=== PATIENT | male | born 1950 | race Caucasian/White ===

== ENCOUNTER 2018-05-29 13:28 | Emergency (ER) | payer MEDICARE, OTHER, SELFPAY ==
[2018-05-29 13:44] VITALS: BP 146/74; PULSE 64; RESP 16; TEMP 36.2; O2SAT 98
--- NOTE | 2018-05-29 14:03 | ED.WOUNDLAC ---
HPI - Wound/Laceration <ERICA Estrada - Last Filed: 05/29/18 23:28> General Chief Complaint: Wound/Laceration Stated Complaint: SORE ON LEFT LEG Time Seen by Provider: 05/29/18 14:03 Source: patient History of Present Illness HPI narrative: 67-year-old male with history type 2 diabetes here for complaint of redness to his left lower leg. He states that he scraped himself on some wood a couple weeks ago to his lower extremity and reports over the past several days that he has had worsening redness to that area. He states that he has been bandaging the area with bacitracin and a dressing since the initial abrasion. No fevers no chills. He denies any other concerns or complaints at this time. Onset (ago): day(s) Related Data Home Medications Medication Instructions Recorded Confirmed ASCORBIC ACID (VITAMIN C) #0 07/14/13 CHOLECALCIFEROL (VITAMIN D) 2,000 units PO QDAY #0 07/14/13 CYANOCOBALAMIN (VITAMIN B-12) 1,000 mcg PO QDAY #0 07/14/13 MULTIVITAMIN #0 07/14/13 amitriptyline #0 07/14/13 aspirin 81 mg PO QDAY #0 07/14/13 atenolol 50 mg PO QDAY #0 07/14/13 clopidogrel [Plavix] 75 mg PO DAILY #0 07/14/13 05/29/18 magnesium #0 07/14/13 metformin [Glucophage] #0 07/14/13 simvastatin [Zocor] #0 07/14/13 testosterone [AndroGel] #0 07/14/13 atorvastatin 40 mg PO DAILY 05/29/18 05/29/18 lisinopril 20 mg PO DAILY 05/29/18 05/29/18 loratadine 10 mg PO DAILY 05/29/18 05/29/18 metoprolol succinate 50 mg PO DAILY 05/29/18 05/29/18 sitagliptin-metformin [Janumet] 05/29/18 testosterone [Fortesta] 05/29/18 Previous Rx's Medication Instructions Recorded clindamycin HCl 300 mg PO QID #28 cap 05/29/18 Allergies Allergy/AdvReac Type Severity Reaction Status Date / Time No Known Drug Allergies Allergy Verified 05/29/18 13:47 Review of Systems <ERICA Estrada - Last Filed: 05/29/18 23:28> Constitutional Denies chills, Denies fever(s), Denies lethargy and Denies weakness Eyes Denies change in vision, Denies eye discharge, Denies irritation and Denies loss of vision ENT Ears, Nose, Mouth, and Throat: Denies change in voice, Denies neck pain and Denies sore throat Cardiovascular Denies chest pain, Denies irregular heart rhythm, Denies lightheadedness, Denies palpitations, Denies dyspnea, Denies dyspnea on exertion and Denies orthopnea Respiratory Denies cough, Denies dyspnea, Denies dyspnea on exertion and Denies wheezing Gastrointestinal Gastrointestinal: Denies abdominal pain, Denies change in bowel habits, Denies diarrhea, Denies nausea and Denies vomiting Genitourinary Denies hematuria, Denies flank pain, Denies urinary incontinence and Denies urinary urgency Musculoskeletal Denies neck pain Comments: Redness to left lower extremity Integumentary/Breasts Denies pruritus, Denies erythema, Denies rash and Denies wounds Neurologic Denies confusion, Denies loss of vision and Denies weakness Psychiatric Denies anxiety, Denies confusion, Denies depression, Denies homicidal ideation and Denies suicidal ideation Endocrine Denies palpitations Allergic/Immunologic Denies wheezing Exam <ERICA Estrada - Last Filed: 05/29/18 23:28> Initial Vital Signs Initial Vital Signs: Vital Signs Temperature 97.1 F L 05/29/18 13:44 Pulse Rate 64 05/29/18 13:44 Respiratory Rate 16 05/29/18 13:44 Blood Pressure 146/74 H 05/29/18 13:44 Pulse Oximetry 98 05/29/18 13:44 Const General: cooperative and well developed Nutritional Appearance: well nourished Orientation: alert, awake, oriented x3 and not confused HENMT Mouth: oral mucosae normal and moist mucous membranes Eyes Conjunctivae: conjunctivae normal Sclera: sclerae normal Pupils: PERRL EOM: EOM intact bilaterally Resp Effort & Inspection: normal respiratory effort, able to speak in complete sentences, no respiratory distress and no use of accessory muscles Auscultation: clear to auscultation bilaterally, no rales, no rhonchi and no wheezes Cardio Rate: regular rate Rhythm: regular rhythm Heart Sounds: no click, no gallops, no murmurs and no rubs Pulses: normal peripheral pulses Extrem Other: Left lower extremity with erythema to area of approximately 10 cm to the morrison. No induration no fluctuance. Distal CMS is intact <Valdo Diaz DO - Last Filed: 06/05/18 07:12> Initial Vital Signs Initial Vital Signs: Vital Signs Temperature 97.1 F L 05/29/18 13:44 Pulse Rate 64 05/29/18 13:44 Respiratory Rate 16 05/29/18 13:44 Blood Pressure 146/74 H 05/29/18 13:44 Pulse Oximetry 98 05/29/18 13:44 Course <ERICA Estrada - Last Filed: 05/29/18 23:28> Vital Signs - 8 hr 05/29/18 13:44 Temperature 97.1 F L Pulse Rate 64 Respiratory Rate 16 Blood Pressure 146/74 H Pulse Oximetry 98 <Valdo Diza DO - Last Filed: 06/05/18 07:12> Vital Signs - 8 hr 05/29/18 13:44 Temperature 97.1 F L Pulse Rate 64 Respiratory Rate 16 Blood Pressure 146/74 H Pulse Oximetry 98 MDM - Wound/Laceration <ERICA Estrada - Last Filed: 05/29/18 23:28> MDM Narrative Medical decision making narrative: Signs and symptoms presents with cellulitis to the left lower extremity. He is placed on clindamycin. [id number] Tylenol or Motrin as needed for any discomfort. Follow up with primary care provider the next few days for re-evaluation. For any worsening symptoms return to the emergency room. Discharge Plan Departure Patient Disposition: Home, Self-Care Clinical Impression: Cellulitis of left leg Discharge Date/Time: 05/29/18 14:36 Interventions: ED Discharge Assessment Last Done: 05/29/18 14:35 Instructions: DI for Cellulitis -- Adult Activity Restrictions/Additional Instructions: Signs and symptoms presents as starting infection called cellulitis to left lower leg. UR placed on antibiotic called clindamycin use as directed. Use afti-khr-eakfcil Tylenol as needed for any discomfort. Follow up with her primary care provider in the next few days for re-evaluation. For any worsening symptoms return to the emergency room. Prescriptions: New clindamycin HCl 300 mg capsule 300 mg PO QID Qty: 28 RF: 0 No Action amitriptyline 25 MG tablet Qty: 0 RF: 0 aspirin 81 MG tablet,delayed release (DR/EC) 81 mg PO QDAY Qty: 0 RF: 0 testosterone [AndroGel] 1 % gel in packet Qty: 0 RF: 0 atenolol 50 MG tablet 50 mg PO QDAY Qty: 0 RF: 0 CHOLECALCIFEROL (VITAMIN D) 2,000 units PO QDAY Qty: 0 RF: 0 magnesium 200 MG tablet Qty: 0 RF: 0 metformin [Glucophage] 500 MG tablet Qty: 0 RF: 0 MULTIVITAMIN Qty: 0 RF: 0 clopidogrel [Plavix] 75 MG tablet 75 mg PO DAILY Qty: 0 RF: 0 simvastatin [Zocor] 20 MG tablet Qty: 0 RF: 0 CYANOCOBALAMIN (VITAMIN B-12) 1,000 mcg PO QDAY Qty: 0 RF: 0 ASCORBIC ACID (VITAMIN C) Qty: 0 RF: 0 atorvastatin 40 mg tablet 40 mg PO DAILY RF: 0 metoprolol succinate 50 mg tablet extended release 24 hr 50 mg PO DAILY RF: 0 lisinopril 20 mg tablet 20 mg PO DAILY RF: 0 loratadine 10 mg tablet 10 mg PO DAILY RF: 0 sitagliptin-metformin [Janumet] 50-1,000 mg tablet RF: 0 testosterone [Fortesta] 10 mg/0.5 gram /actuation gel in metered-dose pump RF: 0 Referrals: Valente Ramos MD [Non-Staff] - <Valdo Diaz DO - Last Filed: 06/05/18 07:12> Cosign ED Attending Cosignature Attestation: I was available for consultation during this patient's emergency department encounter
== END 2018-05-29 14:36 | disposition home or self-care (01) ==
PROVIDERS: Emergency Provider Nurse Practitioner Family
DX: L03.116 Cellulitis of left lower limb (principal); W26.8XXA Contact with other sharp object(s), not elsewhere classified, initial encounter
CPT/HCPCS: 99282; 99283

== ENCOUNTER 2018-06-12 09:07 | Emergency (ER) | payer MEDICARE, OTHER, SELFPAY ==
--- NOTE | 2018-06-12 09:11 | ED.SKABFB ---
HPI - Skin/Abscess/Foreign Bdy General Chief complaint: Skin/Abscess/Foreign Body Stated complaint: LEFT LEG OPEN SORE Time Seen by Provider: 06/12/18 09:09 Source: patient Mode of arrival: ambulatory Limitations: no limitations History of Present Illness HPI narrative: 67-year-old gut-dgbkuwa-fmqjpddvl diabetic male here for evaluation of skin wound to his left lower extremity. Patient was seen here in the emergency department approximately 2 weeks ago for this. Was started on clindamycin for 7 days. He states that he took this medication. He states that it did not make his wounds better or worse. He states that his wounds today look very much the same as they did 2 weeks ago. He states that he called his primary care doctor today for a follow-up and was told to come to the emergency department to get a referral to see wound care. Related Data Home Medications Medication Instructions Recorded Confirmed ASCORBIC ACID (VITAMIN C) #0 07/14/13 CHOLECALCIFEROL (VITAMIN D) 2,000 units PO QDAY #0 07/14/13 CYANOCOBALAMIN (VITAMIN B-12) 1,000 mcg PO QDAY #0 07/14/13 MULTIVITAMIN #0 07/14/13 amitriptyline #0 07/14/13 aspirin 81 mg PO QDAY #0 07/14/13 atenolol 50 mg PO QDAY #0 07/14/13 clopidogrel [Plavix] 75 mg PO DAILY #0 07/14/13 05/29/18 magnesium #0 07/14/13 metformin [Glucophage] #0 07/14/13 simvastatin [Zocor] #0 07/14/13 testosterone [AndroGel] #0 07/14/13 atorvastatin 40 mg PO DAILY 05/29/18 05/29/18 lisinopril 20 mg PO DAILY 05/29/18 05/29/18 loratadine 10 mg PO DAILY 05/29/18 05/29/18 metoprolol succinate 50 mg PO DAILY 05/29/18 05/29/18 sitagliptin-metformin [Janumet] 05/29/18 testosterone [Fortesta] 05/29/18 Previous Rx's Medication Instructions Recorded clindamycin HCl 300 mg PO QID #28 cap 05/29/18 Allergies Allergy/AdvReac Type Severity Reaction Status Date / Time No Known Drug Allergies Allergy Verified 05/29/18 13:47 Review of Systems Constitutional Denies fever(s) Musculoskeletal Comments: No left lower extremity pain Integumentary/Breasts Comments: skin wounds to his left anterior leg Neurologic Comments: no changes in sensation to lower extremities Hematologic/Lymphatic Denies easy bleeding and Denies easy bruising COUNT INCLUDES THE [facility] Medical History Coronary artery disease (Acute) Coronary stent patent (Acute) Hypertension (Acute) Type 2 diabetes mellitus (Acute) Social History Smoking Status: Former smoker Exam Const General: cooperative, healthy appearing, comfortable, well developed, well groomed and No acute distress Orientation: alert, awake and oriented x3 HENMT Head: normal to inspection and normocephalic Resp Effort & Inspection: normal respiratory effort Cardio Pulses: dorsalis pedis present on the left Skin Other: patient with a 10 cm area of superficial ulcerations to his left anterior morrison. Does have crusting. No vesicles. No blisters. No surrounding erythema. Neuro Other: Sensation intact to light touch left lower extremity Extrem Other: left lower extremity unremarkable except for the skin changes to his left anterior morrison MDM - Skin/Abscess/Foreign Bdy MDM Narrative Medical decision making narrative: patient is nontoxic appearing. Had no improvement of his symptoms after 7 day course of clindamycin. Patient is not septic. He is neurovascularly intact. I did contact the wound Care Clinic and was able to make a referral out of the emergency department. They will call the patient for a follow-up appointment tomorrow. Patient was also given the phone number for the wound care clinic. Patient does not need admission to the hospital today. Given the look of his wound I do not think that another course of antibiotics is warranted currently. He was given care instructions to keep it covered so that does not rub against his pants. I feel that given his history of diabetes and the chronic nature of this wound and the fact that it did not get better with a course of antibiotics that a referral to see wound care is warranted. I discussed all this with the patient. He expressed understanding and agreement with plan. Discharge Plan Departure Patient Disposition: Home, Self-Care Clinical Impression: Chronic ulcer of left leg Activity Restrictions/Additional Instructions: you should be receiving a call from the wound care clinic here at [facility] for a follow-up tomorrow afternoon. If you do not hear from them you can call [phone] for a follow-up. Return to the emergency department for any new or worsening symptoms. continue all of your medications as directed. Prescriptions: No Action amitriptyline 25 MG tablet Qty: 0 RF: 0 aspirin 81 MG tablet,delayed release (DR/EC) 81 mg PO QDAY Qty: 0 RF: 0 testosterone [AndroGel] 1 % gel in packet Qty: 0 RF: 0 atenolol 50 MG tablet 50 mg PO QDAY Qty: 0 RF: 0 CHOLECALCIFEROL (VITAMIN D) 2,000 units PO QDAY Qty: 0 RF: 0 magnesium 200 MG tablet Qty: 0 RF: 0 metformin [Glucophage] 500 MG tablet Qty: 0 RF: 0 MULTIVITAMIN Qty: 0 RF: 0 clopidogrel [Plavix] 75 MG tablet 75 mg PO DAILY Qty: 0 RF: 0 simvastatin [Zocor] 20 MG tablet Qty: 0 RF: 0 CYANOCOBALAMIN (VITAMIN B-12) 1,000 mcg PO QDAY Qty: 0 RF: 0 ASCORBIC ACID (VITAMIN C) Qty: 0 RF: 0 atorvastatin 40 mg tablet 40 mg PO DAILY RF: 0 metoprolol succinate 50 mg tablet extended release 24 hr 50 mg PO DAILY RF: 0 lisinopril 20 mg tablet 20 mg PO DAILY RF: 0 loratadine 10 mg tablet 10 mg PO DAILY RF: 0 sitagliptin-metformin [Janumet] 50-1,000 mg tablet RF: 0 testosterone [Fortesta] 10 mg/0.5 gram /actuation gel in metered-dose pump RF: 0 clindamycin HCl 300 mg capsule 300 mg PO QID Qty: 28 RF: 0 Referrals: Frank Stanley MD [Physician] - ( Ecq-ihffrxn-xomcfweme diabetic with chronic left leg anterior tibial skin breakdown) Valente Ramos MD [Non-Staff] -
[2018-06-12 09:17] VITALS: BP 163/76; PULSE 90; RESP 20; TEMP 36.6; O2SAT 99; BMI 31.1
== END 2018-06-12 09:36 | disposition home or self-care (01) ==
PROVIDERS: Emergency Provider Emergency Medicine
DX: L97.929 Non-pressure chronic ulcer of unspecified part of left lower leg with unspecified severity (principal)
CPT/HCPCS: 99282

== ENCOUNTER → 2018-06-13 13:16 | Outpatient (CLI) | payer MEDICARE, OTHER, SELFPAY | PROVIDERS: Referring Provider Emergency Medicine; Visit Provider Internal Medicine | DX: I87.312 Chronic venous hypertension (idiopathic) with ulcer of left lower extremity (principal); L97.821 Non-pressure chronic ulcer of other part of left lower leg limited to breakdown of skin; L03.116 Cellulitis of left lower limb; E11.628 Type 2 diabetes mellitus with other skin complications | CPT/HCPCS: 87070; 87075; 87077; 87147; 87205; 97597; 97598; 99213 ==

== ENCOUNTER → 2018-06-20 10:46 | Outpatient (CLI) | payer MEDICARE, OTHER, SELFPAY | PROVIDERS: Visit Provider Internal Medicine | DX: S81.801A Unspecified open wound, right lower leg, initial encounter (principal); S81.802A Unspecified open wound, left lower leg, initial encounter; E11.628 Type 2 diabetes mellitus with other skin complications; R21 Rash and other nonspecific skin eruption | CPT/HCPCS: 97597 ==

== ENCOUNTER → 2018-06-27 10:22 | Outpatient (CLI) | payer MEDICARE, OTHER, SELFPAY | PROVIDERS: Visit Provider Internal Medicine | DX: S81.801A Unspecified open wound, right lower leg, initial encounter (principal); R21 Rash and other nonspecific skin eruption | CPT/HCPCS: 11042 ==

== ENCOUNTER → 2018-07-04 10:15 | Outpatient (CLI) | payer MEDICARE, OTHER, SELFPAY ==
--- NOTE | 2018-07-04 | OV.WND_ITS ---
Progress Note Details Patient Name: Sriram Aleman Patient Number: [id number] PatientPatientDate: 07/04/2018 Clinician: Stefani Glass Clinician Cosigner: Gita Campo Physician / Control System Computer Scientist: Frank Stanley SUBJECTIVE Chief Complaint This information was obtained from the patient Non-healing wound to left lower leg Allergies NKDA HPI This information was obtained from the patient 07/04/18. Seen by Dr. Stanley. The patient does not report significant drainage associated with the left lower leg venous ulcer nor right lower leg trauma wound since his last visit however he continues to report significant pruritus associated with the left lower leg ulcer as well as a localized rash that is also present on the arms. He feels applying topical hydrocortisone is only partially effective. 06/27/18. Seen by Dr. Stanley. The patient does not report significant drainage associated with the left lower leg venous ulcer nor right lower leg trauma wound since his last visit and he's applying topical triamcinolone ointment to the left lower leg periulcer rash as recommended. 06/20/18. Seen by Dr. Stanley. The patient reports significant pruritus associated with the left lower leg trauma wound but only minimal drainage and he completed his course of doxycycline yesterday that was treating an associated wound infection. He also reports a new trauma wound over the right lateral lower leg that occurred last Tuesday when he tripped over his cat. 06/13/18. Seen by Dr. Stanley. The patient's new to our clinic and presents with a slowly healing left lower leg trauma wound that occurred about one month ago when he hit the leg off of a piece of wood. He's completed a course of clindamycin and feels the wound has improved but continues to report redness and drainage from the area. He has well controlled diabetes and a history of PAD in the right leg. He also complains of 'cramping' in both upper legs when exerting himself or climbing a ladder. Past Medical History This information was obtained from the patient Patient has a medical history of: DM II Coronary Artery Disease (CAD) Hypertension Complaints and Symptoms This information was obtained from the patient Patient complains of: General Notes: I have reviewed and concur with the Review of Systems and Past Family Social History documents completed by the clinician, I have reviewed and concur with the Wound Assessment document completed by the clinician Hematologic/Lymphatic: Bleeding Tendency Integumentary (Hair/Skin/Nails): Open Sore Prior Wound History: Bleeding, Drainage, Erythema, Pain Patient denies complaints or symptoms related to: Constitutional Symptoms (General Health): Chills, Fever Ear/Nose/Mouth/Throat: Hearing Loss / Aid Hematologic/Lymphatic: Bleeding / Clotting Disorders Neurological: Loss of Protective Sensation Psychiatric: Memory Loss Respiratory: Shortness of Breath OBJECTIVE Constitutional Vital signs reviewed and noted. Well developed. Alert. Clean appearing.. Height/ Length: 69 in (175.26 cm), Weight: 199.8 lbs (90.82 kgs), BMI: 29.5, Temperature: 98.2 ?F ( 36.78 ?C), Pulse: 72 bpm, Respiratory Rate: 18 breaths/min, Blood Pressure: 134/66 mmHg, Pulse Oximetry: 98 %. Ears, Nose, Mouth, and Throat: No clinically significant hearing loss on informal examination. Cardiovascular: Affected extremity exhibits no peripheral edema or cyanosis, is warm, and is well perfused. Capillary refill is less than 2 seconds. Integumentary (Hair, Skin) Refer to appropriate clinician wound documentation for this visit; right lower leg wound extends to dermis. Mild confluent, erythematous rash in the affected areas of left lower leg and forearms with excortiation and no appreciable drainage. Wound #1 Anterior Leg is a chronic Partial Thickness Venous Ulcer and has received a status of Not Healed. Subsequent wound encounter measurements are 0cm length x 0cm width with no measurable depth, with an area of 0 sq cm . No tunneling has been noted. No sinus tract has been noted. No undermining has been noted. There was no drainage noted. The patient reports a wound pain of level 0/10. The wound margin is attached. Wound bed has Yes epithelialization, No eschar, No slough, No granulation. The periwound skin texture is normal. The periwound skin moisture is normal. The periwound skin color is normal. The temperature of the periwound skin is WNL. Periwound skin does not exhibit signs or symptoms of infection. Local Pulse is Palpable. Wound #2 Right, Lateral Leg is an acute Full Thickness Trauma Wound and has received a status of Not Healed. Subsequent wound encounter measurements are 3cm length x 0.2cm width x 0.1cm depth, with an area of 0.6 sq cm and a volume of 0.06 cubic cm. No tunneling has been noted. No sinus tract has been noted. No undermining has been noted. There is a scant amount of serous drainage noted which has no odor. The patient reports a wound pain of level 0/10. The wound margin is attached. Wound bed has No epithelialization, No eschar, Yes slough, No granulation. The periwound skin texture is normal. The periwound skin moisture is normal. The periwound skin color is normal. The temperature of the periwound skin is WNL. Periwound skin does not exhibit signs or symptoms of infection. Local Pulse is Palpable. Neurological: Cranial nerves grossly intact with symmetric function normal by informal observation.. ASSESSMENT Active Problems ICD-10 (Encounter Diagnosis) R21 - Rash and other nonspecific skin eruption (Encounter Diagnosis) S81.801D - Unspecified open wound, right lower leg, subsequent encounter (Encounter Diagnosis) L97.821 - Non-pressure chronic ulcer of other part of left lower leg limited to breakdown of skin PROCEDURES Wound #2 Wound #2 (Trauma Wound) is located on the right, lateral leg. A selective debridement with a total area debrided of 0.6 sq cm was performed by Frank Stanley MD. to remove devitalized tissue: exudate. The following instrument(s) were used: curette. Pain control was achieved using 4% Lido. A time out was conducted prior to the start of the procedure. A minimal amount of bleeding was controlled with n/a. The procedure was tolerated well with a pain level of 0 throughout and a pain level of 0 following the procedure. Post Debridement Measurements: 3cm length x 0.2cm width x 0.1cm depth; with an area of 0.6 sq cm and a volume of 0.06 cubic cm; PLAN Wound Orders: Wound #1 Anterior Leg Anesthetic Topical Xylocaine to wound bed. Cleanser May Shower. Topical Treatments Moisturizing lotion to surround skin. - Triamcinolone Cream. It affected areas. Wound #2 Right, Lateral Leg Anesthetic Topical Xylocaine to wound bed. Cleanser Cleanse Wound: - Normal saline in clinic. May use distilled water at home May Shower. - Please avoid getting tap water on wound or on dressing. Cover while in shower. May use cast protector purchased from pharmacy Topical Treatments Antibiotic/Antimicrobial Ointment/Cream. - Triple antibiotic ointment. Dressings Primary dressing: - Bordered Foam Change Dressing: - Every other day Additional Orders: Follow-Up Appointments Return Appointment: - - One week. Next 30 day will be 07/25/18 Other information: If you develop fever, chills, increased pain, drainage, redness or swelling please call our office. If after hours, respond to the ER. Should you experience any significant changes in your wound(s) or have any questions regarding your home care instructions please contact the wound center @ [phone]. If after hours, contact your primary care physician or go to the hospital emergency room. Scribing Attestation I attest, as the nurse, that I scribed these orders for the physician. I've reviewed the clinician's documentation and agree with the evaluation and plan as written. In addition the patient's wound demonstrates evidence of non-viable devitalized tissue which will continue to benefit from sharp debridement to help promote granulation and expedite healing. Also, I've prescribed topical triamcinolone for the persistent and pruritic rash over the left lower leg and arms. Electronic Signature(s) Signed By: Date: Frank Stanley MD 07/05/2018 08:37:45 Entered By: Frank Stanley on 07/05/2018 08:29:03
== END ==
PROVIDERS: PCP Internal Medicine; Visit Provider Internal Medicine
DX: R21 Rash and other nonspecific skin eruption (principal); S81.801A Unspecified open wound, right lower leg, initial encounter
CPT/HCPCS: 97597

== ENCOUNTER → 2018-07-12 10:04 | Outpatient (CLI) | payer MEDICARE, OTHER, SELFPAY ==
--- NOTE | 2018-07-12 | OV.WND_ITS ---
Progress Note Details Patient Name: Sriram Aleman Patient Number: [id number] PatientPatientDate: 07/12/2018 Clinician: Kourtney Saravia Clinician Cosigner: Gita Campo Physician / Sales Force Developer: Frank Stanley SUBJECTIVE Chief Complaint This information was obtained from the patient Non-healing wound to left lower leg Allergies NKDA HPI This information was obtained from the patient 07/12/18. Seen by Dr. Stanley. The patient does not report significant drainage associated with the left lower leg venous ulcer nor right lower leg trauma wound since his last visit. 07/04/18. Seen by Dr. Stanley. The patient does not report significant drainage associated with the left lower leg venous ulcer nor right lower leg trauma wound since his last visit however he continues to report significant pruritus associated with the left lower leg ulcer as well as a localized rash that is also present on the arms. He feels applying topical hydrocortisone is only partially effective. 06/27/18. Seen by Dr. Stanley. The patient does not report significant drainage associated with the left lower leg venous ulcer nor right lower leg trauma wound since his last visit and he's applying topical triamcinolone ointment to the left lower leg periulcer rash as recommended. 06/20/18. Seen by Dr. Stanley. The patient reports significant pruritus associated with the left lower leg trauma wound but only minimal drainage and he completed his course of doxycycline yesterday that was treating an associated wound infection. He also reports a new trauma wound over the right lateral lower leg that occurred last Tuesday when he tripped over his cat. 06/13/18. Seen by Dr. Stanley. The patient's new to our clinic and presents with a slowly healing left lower leg trauma wound that occurred about one month ago when he hit the leg off of a piece of wood. He's completed a course of clindamycin and feels the wound has improved but continues to report redness and drainage from the area. He has well controlled diabetes and a history of PAD in the right leg. He also complains of 'cramping' in both upper legs when exerting himself or climbing a ladder. Past Medical History This information was obtained from the patient Patient has a medical history of: DM II Coronary Artery Disease (CAD) Hypertension Complaints and Symptoms This information was obtained from the patient Patient complains of: General Notes: I have reviewed and concur with the Review of Systems and Past Family Social History documents completed by the clinician, I have reviewed and concur with the Wound Assessment document completed by the clinician Hematologic/Lymphatic: Bleeding Tendency Integumentary (Hair/Skin/Nails): Open Sore Prior Wound History: Bleeding, Drainage, Erythema, Pain Patient denies complaints or symptoms related to: Constitutional Symptoms (General Health): Chills, Fever Ear/Nose/Mouth/Throat: Hearing Loss / Aid Hematologic/Lymphatic: Bleeding / Clotting Disorders Neurological: Loss of Protective Sensation Psychiatric: Memory Loss Respiratory: Shortness of Breath OBJECTIVE Constitutional Vital signs reviewed and noted. Height/Length: 69 in (175.26 cm), Weight: 205.7 lbs (93.5 kgs), BMI: 30.4, Temperature: 97.8 ?F (36.56 ?C), Pulse: 62 bpm, Respiratory Rate: 18 breaths/min, Blood Pressure: 118/60 mmHg, Pulse Oximetry: 98 %. Respiratory: No respiratory distress. Even respirations and without use of accessory muscles.. Cardiovascular: Affected extremity exhibits no peripheral edema or cyanosis, is warm, and is well perfused. Capillary refill is less than 2 seconds. Integumentary (Hair, Skin) Refer to appropriate clinician wound documentation for this visit.. Wound #1 Anterior Leg is a chronic Partial Thickness Venous Ulcer and has received an outcome of Healed - no new wound(s). Subsequent wound encounter measurements are 0cm length x 0cm width with no measurable depth, with an area of 0 sq cm . No tunneling has been noted. No sinus tract has been noted. No undermining has been noted. There was no drainage noted. The patient reports a wound pain of level 0/10. The wound margin is attached. Wound bed has Yes epithelialization, No eschar, No slough, No granulation. The periwound skin texture is normal. The periwound skin moisture is normal. The periwound skin color is normal. The temperature of the periwound skin is WNL. Periwound skin does not exhibit signs or symptoms of infection. Local Pulse is Palpable. Wound #2 Right, Lateral Leg is an acute Full Thickness Trauma Wound and has received an outcome of Healed - no new wound(s). Subsequent wound encounter measurements are 0cm length x 0cm width with no measurable depth, with an area of 0 sq cm . No tunneling has been noted. No sinus tract has been noted. No undermining has been noted. There was no drainage noted. The patient reports a wound pain of level 0/10. The wound margin is attached. Wound bed has No epithelialization, No eschar, Yes slough, No granulation. The periwound skin texture is normal. The periwound skin moisture is normal. The periwound skin color is normal. The temperature of the periwound skin is WNL. Periwound skin does not exhibit signs or symptoms of infection. Local Pulse is Palpable. ASSESSMENT Active Problems ICD-10 (Encounter Diagnosis) R21 - Rash and other nonspecific skin eruption (Encounter Diagnosis) S81.801D - Unspecified open wound, right lower leg, subsequent encounter (Encounter Diagnosis) L97.821 - Non-pressure chronic ulcer of other part of left lower leg limited to breakdown of skin PLAN Additional Orders: Cleanser Cleanse Wound: - Normal saline and gauze. Topical Treatments Moisturizing lotion to surround skin. - Put moisturizing your leg to prevent from drying and cracking. Follow-Up Appointments Other information: If you develop fever, chills, increased pain, drainage, redness or swelling please call our office. If after hours, respond to the ER. Should you experience any significant changes in your wound(s) or have any questions regarding your home care instructions please contact the wound center @ [phone]. If after hours, contact your primary care physician or go to the hospital emergency room. Discharge from Outpatient Services. - Wound healed Scribing Attestation I attest, as the nurse, that I scribed these orders for the physician. I've reviewed the clinician's documentation and agree with the evaluation and plan as written. In addition the patient's last remiaining complex wound is now healed. The patient is invited to return to our clinic for treatment of any future complex wounds. Post wound care and strategies to avoid recurrences were discussed. Electronic Signature(s) Signed By: Date: Frank Stanley MD 07/13/2018 06:27:44 Entered By: Frank Stanley on 07/12/2018 10:13:15
== END ==
PROVIDERS: PCP Internal Medicine; Visit Provider Internal Medicine
DX: Z48.817 Encounter for surgical aftercare following surgery on the skin and subcutaneous tissue (principal)
CPT/HCPCS: 99212

== ENCOUNTER 2019-11-26 07:23 | Day surgery (SDC) | payer MEDICARE, OTHER, SELFPAY ==
[2019-11-26] VITALS (7 sets, daily range): BP systolic 113–194; BP diastolic 64–89; PULSE 72–109; RESP 10–16; TEMP 36.1–36.9; O2SAT 91–97; BMI 29.9
[2019-11-26] MEDS: SODIUM CHLORIDE 0.9% 1,000 ML 200 ML IV (08:13)
--- NOTE | 2019-11-26 08:34 | PM.HP.1 ---
History of Present Illness History of Present Illness Date Patient Seen: 11/26/19 Time Patient Seen: 08:35 Chief complaint: [id number] SCREENING COLONOSCOPY Narrative: Patient presents for colorectal screening. There prior colonoscopy 11 years ago which was reportedly normal. No personal or family history of colon cancer. On further history denies any recent gastrointestinal symptoms. No nausea, vomiting, abdominal pain, loss of appetite, unexplained weight loss, change in bowel habits, diarrhea, constipation, melena, hematochezia, or bright red blood per rectum. Patient History Medical History Coronary artery disease (Acute) Coronary stent patent (Acute) Hypertension (Acute) Type 2 diabetes mellitus (Acute) Family & Social History Social History: household members none Tobacco & Substance use: Smoking Status Former smoker Substance Use Type does not use Meds Home Medications and Allergies Home Medications Medication Instructions Recorded Confirmed Type CHOLECALCIFEROL (VITAMIN D) 2,000 units PO QDAY #0 07/14/13 11/26/19 History amitriptyline 25 mg PO DAILY #0 07/14/13 11/26/19 History aspirin 81 mg PO QDAY #0 07/14/13 11/26/19 History clopidogrel [Plavix] 75 mg PO DAILY #0 07/14/13 11/26/19 History simvastatin [Zocor] 20 mg PO DAILY #0 07/14/13 11/26/19 History testosterone [AndroGel] 1 TOPICAL DAILY #0 07/14/13 History atorvastatin 40 mg PO DAILY 05/29/18 11/26/19 History lisinopril 20 mg PO DAILY 05/29/18 11/26/19 History loratadine 10 mg PO DAILY 05/29/18 11/26/19 History metoprolol succinate 50 mg PO DAILY 05/29/18 11/26/19 History sitagliptin-metformin [Janumet] 50 - 1,000 tab PO BID 05/29/18 History testosterone [Fortesta] 05/29/18 History Allergies Allergy/AdvReac Type Severity Reaction Status Date / Time No Known Drug Allergies Allergy Verified 05/29/18 13:47 Review of Systems Review of Systems Narrative: A complete review of systems is negative except as noted in the HPI Exam Vital Signs (past 8 hours): - 11/26/19 08:02 Temperature 96.9 F L Pulse Rate 109 H Respiratory Rate 16 Blood Pressure 194/89 H Pulse Oximetry 97 Oxygen Delivery Method Room Air Narrative Exam Narrative: General-no acute distress, well nourished HEENT-moist mucous membranes, no scleral icterus Neck-supple, no lymphadenopathy Chest- non labored respirations, clear to auscultation bilaterally Cardiac-regular rate no peripheral edema Abdomen-soft, nontender, non distended Extremities-warm, well perfused Neurological-alert and oriented, no focal deficits Assessment & Plan Assessment and plan (1) Screening for colon cancer: Current visit: Yes Status: Acute Assessment & Plan narrative: The patient requires colorectal screening and colonoscopy is recommended. Technical details were discussed. Risks, benefits, alternatives explained. Risks including but not limited to myocardial infarction, aspiration, bleeding, pain, missed lesion, incomplete examination, need for further radiographic studies, colonic perforation, and need for major abdominal surgery were discussed. All questions were answered to their satisfaction, and they are in agreement with this plan.
[2019-11-26] MEDS: fentaNYL 250 MCG/5 ML INJ IV (08:59)
[2019-11-26] MEDS: MIDAZOLAM 5 MG/5 ML VIAL IV (08:59)
--- NOTE | 2019-11-26 08:59 | PM.OP.ENDO ---
Operative Date/Time/Diagnoses Date of procedure: 11/26/19 Time of procedure: 08:59 Pre-op diagnosis: Screening colonoscopy Post-op diagnosis: same Procedure & Clinicians Study performed: Colonoscopy Same procedure as scheduled: Yes Indications: 69-year-old male previous normal colonoscopy 11 years ago presents for routine screening. Surgeon: Miko Thompson Procedure Notes SCOAP/Timeout: Performed Procedure in detail: Patient placed in left lateral decubitus position. Time out was performed. Procedural sedation was administered with Versed and Fentanyl. A rectal exam demonstrated external hemorrhoids no internal masses. Colonoscopy scope was placed into the rectum and advanced through the colon to the cecum. The ileocecal valve was identified. The scope was then slowly withdrawn examining colon thoroughly in all directions. The colonoscopy was notable for the following 1. Crouch diverticulosis 2. External hemorrhoids 3. Quality of prep fair Scope withdrawal time: 6 Sedation minutes: 18 Findings: diverticulosis Specimen(s): none sent Complications: none Impression: Diverticulosis Post-procedure Recommendations: Colonscopy in 10 years Disposition: same day surgery
--- NOTE | 2019-11-26 09:17 | SUR.PHASEI ---
Denies pain and nausea. Tolerating po. Abdomen soft.
== END 2019-11-26 09:49 | disposition home or self-care (01) ==
PROVIDERS: PCP Internal Medicine; Visit Provider Surgery
PROC: 0DJD8ZZ Inspection of Lower Intestinal Tract, Via Natural or Artificial Opening Endoscopic (ICD-10-PCS; CPT 45378; principal; 2019-11-26 08:30)
DX: Z12.11 Encounter for screening for malignant neoplasm of colon (principal); I10 Essential (primary) hypertension; E11.9 Type 2 diabetes mellitus without complications; Z79.84 Long term (current) use of oral hypoglycemic drugs; I25.10 Atherosclerotic heart disease of native coronary artery without angina pectoris; K57.30 Diverticulosis of large intestine without perforation or abscess without bleeding; K64.4 Residual hemorrhoidal skin tags
CPT/HCPCS: G0121; 99152; J2250; J3010

== ENCOUNTER → 2020-05-25 12:35 | Outpatient (CLI) | payer MEDICARE, OTHER, SELFPAY ==
--- NOTE | 2020-05-25 12:37 | DI.RAD.S_ITS ---
PROCEDURE: XR LUMBAR SPINE 2-3V INDICATIONS: fall- hip and back pain TECHNIQUE: 3 views of the lumbar spine were acquired. COMPARISON: None. FINDINGS: Bones: 5 gdx-[id number]-bipcdyx vertebrae are present. There is normal bony alignment. No vertebral body compression fractures. No suspicious bony lesions. Multilevel degenerative disc space loss and multilevel facet arthropathy. Suspect canal stenosis. Soft tissues: Overlying bowel gas pattern is normal. No suspicious soft tissue calcifications. Advanced atherosclerotic calcifications of the aorta common iliacs, SMA, celiac, and splenic artery. IMPRESSION: 1. No evidence acute bony abnormality of the lumbar spine. 2. Advanced generalized atherosclerosis. 3. Multilevel degenerative disc disease and facet arthropathy. 4. Suspected lumbar canal stenosis. Dictated by: Tu Gutiérrez M.D. on 05/25/2020 at 11:59 Approved by: Tu Gutiérrez M.D. on 05/25/2020 at 12:00
--- NOTE | 2020-05-25 12:37 | DI.RAD.S_ITS ---
PROCEDURE: XR HIP W PEL IF DONE LT 2V INDICATIONS: fall- hip and back pain TECHNIQUE: AP pelvis with lateral view(s) of the left hip(s). COMPARISON: None. FINDINGS: Bones: No fractures or dislocations. Pelvic ring appears intact. No suspicious bony lesions. Mild bilateral hip degenerative change. Soft tissues: The visualized bowel gas pattern is normal. No suspicious soft tissue calcifications. Advanced atherosclerotic indications involving the femoral vessels and iliacs. IMPRESSION: Advanced peripheral vascular disease. No evidence acute bony abnormality of the pelvis and left hip. If clinical suspicion and/or symptoms persist, further assessment with repeat plain films, or advanced imaging (e.g., CT, MRI, or bone scan) may be helpful for further assessment. Dictated by: Tu Gutiérrez M.D. on 05/25/2020 at 11:58 Approved by: Tu Gutiérrez M.D. on 05/25/2020 at 11:59
== END ==
PROVIDERS: PCP Internal Medicine; Referring Provider Physician Assistant; Visit Provider Physician Assistant
DX: M54.9 Dorsalgia, unspecified (principal); M25.552 Pain in left hip; I73.9 Peripheral vascular disease, unspecified
CPT/HCPCS: 72100; 73502

== ENCOUNTER → 2021-04-06 10:06 | Outpatient (CLI) | payer MEDICARE, OTHER, SELFPAY ==
[2021-04-06 11:29] LABS: COVID19 -Nasal RAPID Negative (Negative)
== END ==
PROVIDERS: PCP Internal Medicine; Visit Provider Student in an Organized Health Care Education/Training Program
DX: Z01.812 Encounter for preprocedural laboratory examination (principal); Z20.822 Contact with and (suspected) exposure to COVID-19
CPT/HCPCS: 87635; C9803

== ENCOUNTER → 2021-05-12 13:30 | Outpatient (CLI) | payer MEDICARE, OTHER, SELFPAY | PROVIDERS: PCP Internal Medicine; Visit Provider Physician Assistant | DX: N34.3 Urethral syndrome, unspecified (principal) | CPT/HCPCS: 87077; 87086; 87186 ==

== ENCOUNTER 2021-07-06 08:30 | Outpatient (RCR) | payer MEDICARE, OTHER, SELFPAY | END 2021-07-06 10:30 | LOC: CAR 08:30 | PROVIDERS: PCP Internal Medicine; Referring Provider Specialist; Visit Provider Specialist | DX: Z95.1 Presence of aortocoronary bypass graft (principal) | CPT/HCPCS: 93798 ==

== ENCOUNTER → 2022-04-27 12:01 | Outpatient (CLI) | payer MEDICARE, OTHER, SELFPAY | PROVIDERS: PCP Internal Medicine; Visit Provider Physician Assistant | DX: R30.0 Dysuria (principal) | CPT/HCPCS: 87077; 87086; 87186 ==

== ENCOUNTER → 2022-05-16 11:24 | Outpatient (CLI) | payer MEDICARE, OTHER, SELFPAY | PROVIDERS: PCP Internal Medicine; Visit Provider Nurse Practitioner Family | DX: R31.9 Hematuria, unspecified (principal) | CPT/HCPCS: 87077; 87086; 87186 ==

== ENCOUNTER 2022-05-19 12:24 | Emergency (ER) | payer MEDICARE, OTHER, SELFPAY ==
[2022-05-19] VITALS (14 sets, daily range): BP systolic 170–223; BP diastolic 76–102; PULSE 80–97; RESP 10–27; TEMP 37; O2SAT 97–100; BMI 30.2
--- NOTE | 2022-05-19 12:52 | DI.RAD.S_ITS ---
PROCEDURE: XR CHEST 2V INDICATIONS: shortness of breath TECHNIQUE: 2 views of the chest were acquired. COMPARISON: [facility], , CHEST 1 VIEW, 07/14/2013, 14:28. FINDINGS: Surgical changes and devices: Median sternotomy wires are seen. There is also possible atrial clip noted. Lungs and pleura: Mild pulmonary vascular congestion is seen. No definite focal infiltrate. No pleural effusions or pneumothorax. Mediastinum: Mediastinal contours are normal. Heart size is normal. Bones and chest wall: No suspicious bony abnormalities. Soft tissues appear unremarkable. IMPRESSION: Mild congestion. No focal infiltrate, pleural effusion or pneumothorax. Dictated by: Michael Turner M.D. on 05/19/2022 at 14:05 Approved by: Michael Turner M.D. on 05/19/2022 at 14:06
[2022-05-19 13:35] LABS: Add Manual Diff / Slide Review NO; Basophils Absolute Auto 0 /uL (0-100); Basophils Percent Auto 0.5 % (0-2); Eosinophils Absolute Auto 0 /uL (0-450); Eosinophils Percent Auto 0.3 % (2-4); Hematocrit 24.7 % (41-53); Hemoglobin 7.9 g/dL (13.5-17.5); Lymphocytes Absolute Auto 600 /uL (1100-4500); Lymphocytes Percent Auto 8.1 % (25-40); Mean Corpuscular Hemoglobin 23.3 PG (26-34); Mean Corpuscular Volume 72.7 fL (80-100); Monocytes Absolute Auto 1200 /uL (0-900); Monocytes Percent Auto 15.1 % (3-14); Neutrophils Absolute Auto 6000 /uL (1500-7000); Platelet Count 192 X10^3/uL (150-400); Red Cell Distribution Width 19.2 % (11.6-14.8); White Blood Cell Count 7.9 X10^3/uL (4.5-11.0)
[2022-05-19 13:50] LABS: Lactate (Lactic Acid) 2.5 mmol/L (0.7-2.1)
[2022-05-19 14:05] LABS: HEMOLYSIS < 15 (0-50)
[2022-05-19 14:15] LABS: Alanine Aminotransferase 17 IU/L (<50); Albumin 3.5 g/dL (3.5-5.0); Albumin Globulin Ratio 1.3 (1.0-2.8); Alkaline Phosphatase 61 U/L (38-126); Aspartate Aminotransferase 20 IU/L (17-59); BUN Creatinine Ratio 16.1 (6-22); Bilirubin Total 0.7 mg/dL (0.2-1.3); Blood Urea Nitrogen 10 mg/dL (9-20); Calcium 7.7 mg/dL (8.4-10.2); Carbon Dioxide 29 mmol/L (22-32); Chloride 97 mmol/L (98-107); Estimated Glomerular Filt Rate > 60 mL/min (>60); Globulin 2.8 g/dL (1.7-4.1); Glucose 230 mg/dL (80-110); Potassium 3.4 mmol/L (3.4-5.1); Sodium 135 mmol/L (137-145); Total Protein 6.3 g/dL (6.3-8.2)
[2022-05-19 14:24] LABS: NT-proBNP (BNP-Adult 18+) 983 pg/mL (<125)
[2022-05-19 14:26] LABS: Troponin I < 0.012 ng/mL (0.01-0.034)
--- NOTE | 2022-05-19 15:24 | ED.SOB ---
HPI - SOB/Dyspnea General Chief Complaint: Shortness of Breath/Dyspnea Stated Complaint: FEET AND LEG SWELLING Time Seen by Provider: 05/19/22 14:50 Mode of arrival: Family Vehicle History of Present Illness HPI Narrative: The patient presents complaining of bilateral lower extremity swelling and erythema. Symptoms started 2 weeks ago. The swelling initially waxed and waned. The Swelling is persistent now. Erythema is focused around the 1st MTP joints of both lower extremities, there is no erythema going up the legs. He has no fever or chills. He has history of gout, he takes allopurinol prophylaxis. He has not experienced chest pain, cough or dyspnea. He has no hemoptysis. He has no orthopnea. He denies history of CHF. He does have known CAD. Patient was previously on clopidogrel , he is still taking aspirin. He has no abdominal pain. He has no history of GI bleeding. His no nausea vomiting. He has no bloody stools. Limited records were obtained on the patient from an out the side facility. His HH H was 8.9/30.7 March 19. He denies headache, fever chills. He has no sore throat. Has no chest pain, cough or dyspnea. He has not experienced abdominal discomfort, nausea vomiting. He has no suggestive GI bleeding. He was restarted on Macrobid for UTI. Related Data Home Medications Medication Instructions Recorded Confirmed CHOLECALCIFEROL (VITAMIN D) 2,000 units PO QDAY ##0 07/14/13 05/19/22 aspirin 81 mg tablet,delayed 81 mg PO QDAY ##0 07/14/13 05/19/22 release testosterone 1 % (25 mg/2.5 gram) 1 topical DAILY ##0 07/14/13 05/16/22 transdermal gel packet (AndroGel) loratadine 10 mg tablet 10 mg PO DAILY 05/29/18 05/19/22 metoprolol succinate 50 mg 75 mg PO DAILY 05/29/18 05/19/22 tablet,extended release 24 hr amitriptyline 25 mg tablet 25 mg PO BID 05/25/20 05/19/22 atorvastatin 40 mg tablet 40 mg PO DAILY 05/25/20 05/19/22 isosorbide dinitrate 30 mg tablet 30 mg PO ONCE 05/25/20 05/16/22 hydrocodone 5 mg-acetaminophen 325 1 tab PO BEDTIME 04/27/22 05/19/22 mg tablet metformin 500 mg 24 hr 500 mg PO DAILY 04/27/22 05/19/22 tablet,extended release allopurinol 100 mg tablet 2 tab PO DAILY 05/19/22 05/19/22 dulaglutide 0.75 mg/0.5 mL 1 ea SUBCUT 05/19/22 subcutaneous pen injector (Trulicity) Previous Rx's Medication Instructions Recorded nitrofurantoin 100 mg PO Q12H 5 days #10 caps 05/16/22 monohydrate/macrocrystals 100 mg capsule (Macrobid) colchicine 0.6 mg tablet 0.6 mg PO DAILY #10 tabs 05/19/22 furosemide 40 mg tablet (Lasix) 40 mg PO DAILY #30 tabs 05/19/22 sulfamethoxazole 800 1 tab PO Q12H 10 days #20 tabs 05/19/22 mg-trimethoprim 160 mg tablet Allergies Allergy/AdvReac Type Severity Reaction Status Date / Time empagliflozin Allergy Unknown Verified 05/19/22 12:51 [From Jardiance] Review of Systems Constitutional Constitutional: Denies body ache(s), Denies chills, Denies headache(s) and Denies malaise Eyes Eyes: Denies blurry vision and Denies change in vision ENT Ears, Nose, Mouth, and Throat: Denies vertigo, Denies dizziness, Denies otalgia, Denies facial pain, Denies headache(s), Denies sinus pain, Denies sinus pressure and Denies sore throat Cardiovascular Cardiovascular: Denies chest pain, Denies syncope, Denies rapid heart rate, Reports leg edema, Denies lightheadedness and Denies dyspnea on exertion Respiratory Respiratory: Denies cough, Denies dyspnea on exertion and Denies wheezing Gastrointestinal Gastrointestinal: Denies melena, Denies constipation, Denies nausea and Denies vomiting Genitourinary Genitourinary: Denies urinary frequency and Denies urinary hesitancy Musculoskeletal Musculoskeletal: Denies back pain Comments: Lower extremity discomfort, see HPI. Integumentary/Breasts Skin/Breast: Denies rash, Denies skin pain, Denies skin swelling and Denies skin ulcer Neurologic Neurologic: Denies confusion, Denies vertigo, Denies dizziness, Denies syncope and Denies headache(s) Psychiatric Psychiatric: Denies confusion Hematologic/Lymphatic On Anticoagulants: No Allergic/Immunologic Allergic/Immunologic: Denies wheezing Patient History Medical History Bursitis Coronary artery disease Coronary stent patent Hypertension Type 2 diabetes mellitus Social History household members: none Smoking Status: Former smoker Smoking Status: Former smoker Substance Use Type: does not use Exam Initial Vital Signs Initial Vital Signs: Vital Signs Temperature 98.6 F 05/19/22 12:48 Pulse Rate 95 H 05/19/22 12:48 Respiratory Rate 24 05/19/22 12:48 Blood Pressure 210/93 H 05/19/22 12:48 Pulse Oximetry 99 05/19/22 12:48 Oxygen Delivery Method 05/19/22 12:48 Const General: cooperative, healthy appearing and comfortable HENKS Head: normal to inspection, normocephalic and atraumatic Face and sinus: normal facial exam Mouth: oropharynx normal Throat: posterior oropharynx normal Eyes General: Yes appearance normal, both eyes and all related structures Neck Neck: normal visual inspection and JVD (2 cm) Thyroid: thyroid normal Chest Chest: localized rib tenderness with anteroposterior compression Resp Effort & Inspection: normal respiratory effort Auscultation: clear to auscultation bilaterally Cardio Rate: regular rate Rhythm: regular rhythm Heart Sounds: S1 normal, S2 normal, no click, no murmurs and no rubs GI Inspection: normal to inspection and non-distended Palpation: soft, No mass and No tender Auscultation: normal bowel sounds Rectal Exam: normal sphincter tone Other: Heme-negative stool. Back/Spine/Pelvis Back: No CVA tenderness Skin General: no rashes or lesions noted Neuro General: patient alert, patient awake, patient oriented x3 and no focal motor deficits Extrem General: normal to inspection, full ROM and no calf tenderness Other: 4+ bilateral lower extremity edema. Dorsalis pedis pulses normal. He has bilateral inflammatory changes at the 1st MTP joints, suggesting gout. There is also erythema extending from the MP joint joints to the dorsal feet. Erythema does not extend beyond the feet. He has status dermatitis. There is warmth around areas of inflammation. There is no induration or fluctuance at the sites. Psych Appearance: grossly normal Course Course Course Narrative: The patient has hypertension, currently on metoprolol. Hydralazine was given in the ER to help manage his blood pressure. He needs to follow-up with his PCM regarding his blood pressure. His BNP is elevated, Lasix is given. He has very good diuresis, the swelling is due increasing his lower extremities. His lung exam is normal. He has no dyspnea. Uric acid levels normal. Additional Information: Patient's symptoms have improved with IV Lasix, Rocephin and Toradol. He has inflammation bilaterally at the 1st MTP joint consistent with gout. He is on allopurinol, his uric acid level is 3.1. In addition to Toradol, I have started him on colchicine. However the erythema is feet is more extensive than gout. He has edema with stasis dermatitis. I am covering him for cellulitis, initially with Rocephin. He will be discharged on Septra DS. He has mild JVD. Lungs are clear, but is extensive edema. His BNP is elevated. The reduction in edema after Lasix has been quite relieving. His H&H is notably low. Prior records indicate chronic anemia, guaiac testing is negative. He needs follow up on the anemia. He will be discharged home on colchicine, Lasix, and Septra DS. He has scheduled follow-up with his PCM at the [facility]. Orders Ordered: ED Orders 05/19/22 12:52 XR chest 2V Stat EKG-12 Lead Stat Measure peak expiratory flow ONCE RT Consult Eval and Treat Now 05/19/22 13:20 Complete Blood Count AUTO DIFF Stat Comprehensive Metabolic Panel Stat Lactate (Lactic Acid) Stat NT-proBNP (BNP-Adult 18+) Stat Trop I [Troponin I] Stat 05/19/22 15:23 COVID19 -Nasal RAPID/Pre-Proc Stat 05/19/22 15:55 Blood Culture Stat 05/19/22 16:00 Uric Acid Stat 05/19/22 18:46 Urinalysis and Microscopic Stat Discontinued Medications Furosemide (Furosemide 40 Mg/4 Ml Vial) 40 mg IV NOW ONE Stop: 05/19/22 15:25 Last Admin: 05/19/22 15:51 Dose: 40 mg Documented By: ALEXANDRA Ceftriaxone Sodium 1,000 mg/ (Sodium Chloride) 100 mls @ 200 mls/hr IV NOW ONE Stop: 05/19/22 15:25 Last Infusion: 05/19/22 16:41 Dose: 0 mls/hr Documented By: Admin: 05/19/22 16:03 Dose: 200 mls/hr Documented By: ALEXANDRA Ketorolac Tromethamine (Ketorolac 30 Mg/Ml Vial) 15 mg IV NOW ONE Stop: 05/19/22 15:25 Last Admin: 05/19/22 15:51 Dose: 15 mg Documented By: ALEXANDRA Vital Signs Vital signs: Vital Signs - 8 hr 05/19/22 12:48 05/19/22 16:01 05/19/22 16:02 Temperature 98.6 F Pulse Rate 95 H 84 86 Respiratory Rate 24 Blood Pressure 210/93 H Pulse Oximetry 99 98 99 Oxygen Delivery Method Room Air 05/19/22 16:03 05/19/22 16:03 Temperature Pulse Rate 86 Respiratory Rate 22 Blood Pressure 200/95 H Pulse Oximetry 99 Oxygen Delivery Method MDM - SOB/Dyspnea Lab Data Result diagrams: 05/19/22 13:20 05/19/22 13:20 Labs: Lab Results 05/19/22 05/19/22 05/19/22 Range/Units 13:20 13:20 13:20 WBC 7.9 (4.5-11.0) X10^3/uL RBC 3.40 L (4.5-5.9) X10^6/uL Hgb 7.9 L (13.5-17.5) g/dL Hct 24.7 L (41-53) % MCV 72.7 L (80-100) fL MCH 23.3 L (26-34) PG MCHC 32.0 (30-36) % RDW 19.2 H (11.6-14.8) % Plt Count 192 (150-400) X10^3/uL Neut % (Auto) 76.0 H (50-75) % Lymph % (Auto) 8.1 L (25-40) % [place] % (Auto) 15.1 H (3-14) % Eos % (Auto) 0.3 L (2-4) % Baso % (Auto) 0.5 (0-2) % Neut # (Auto) 6000 (6274-7224) /uL Lymph # (Auto) 600 L (3452-2522) /uL [place] # (Auto) 1200 H (0-900) /uL Eos # (Auto) 0 (0-450) /uL Baso # (Auto) 0 (0-100) /uL Sodium 135 L (137-145) mmol/L Potassium 3.4 (3.4-5.1) mmol/L Chloride 97 L (98-107) mmol/L Carbon Dioxide 29 (22-32) mmol/L BUN 10 (9-20) mg/dL Creatinine 0.62 L (0.66-1.25) mg/dL Estimated GFR > 60 (>60) mL/min BUN/Creatinine Ratio 16.1 (6-22) Glucose 230 H (80-110) mg/dL Lactate 2.5 H (0.7-2.1) mmol/L Uric Acid (3.5-8.5) mg/dL Calcium 7.7 L (8.4-10.2) mg/dL Total Bilirubin 0.7 (0.2-1.3) mg/dL AST 20 (17-59) IU/L ALT 17 (<50) IU/L Alkaline Phosphatase 61 (38-126) U/L Troponin I (0.01-0.034) ng/mL NT-Pro-B Natriuret Pep 983 H (<125) pg/mL Total Protein 6.3 (6.3-8.2) g/dL Albumin 3.5 (3.5-5.0) g/dL Globulin 2.8 (1.7-4.1) g/dL Albumin/Globulin Ratio 1.3 (1.0-2.8) SARS-CoV-2 (PCR) (Negative) 05/19/22 05/19/22 05/19/22 Range/Units 13:20 15:23 16:00 WBC (4.5-11.0) X10^3/uL RBC (4.5-5.9) X10^6/uL Hgb (13.5-17.5) g/dL Hct (41-53) % MCV (80-100) fL MCH (26-34) PG MCHC (30-36) % RDW (11.6-14.8) % Plt Count (150-400) X10^3/uL Neut % (Auto) (50-75) % Lymph % (Auto) (25-40) % [place] % (Auto) (3-14) % Eos % (Auto) (2-4) % Baso % (Auto) (0-2) % Neut # (Auto) (5639-9041) /uL Lymph # (Auto) (7292-5928) /uL [place] # (Auto) (0-900) /uL Eos # (Auto) (0-450) /uL Baso # (Auto) (0-100) /uL Sodium (137-145) mmol/L Potassium (3.4-5.1) mmol/L Chloride (98-107) mmol/L Carbon Dioxide (22-32) mmol/L BUN (9-20) mg/dL Creatinine (0.66-1.25) mg/dL Estimated GFR (>60) mL/min BUN/Creatinine Ratio (6-22) Glucose (80-110) mg/dL Lactate (0.7-2.1) mmol/L Uric Acid 3.1 L (3.5-8.5) mg/dL Calcium (8.4-10.2) mg/dL Total Bilirubin (0.2-1.3) mg/dL AST (17-59) IU/L ALT (<50) IU/L Alkaline Phosphatase (38-126) U/L Troponin I < 0.012 (0.01-0.034) ng/mL NT-Pro-B Natriuret Pep (<125) pg/mL Total Protein (6.3-8.2) g/dL Albumin (3.5-5.0) g/dL Globulin (1.7-4.1) g/dL Albumin/Globulin Ratio (1.0-2.8) SARS-CoV-2 (PCR) Negative (Negative) 05/19/22 Range/Units 16:00 WBC (4.5-11.0) X10^3/uL RBC (4.5-5.9) X10^6/uL Hgb (13.5-17.5) g/dL Hct (41-53) % MCV (80-100) fL MCH (26-34) PG MCHC (30-36) % RDW (11.6-14.8) % Plt Count (150-400) X10^3/uL Neut % (Auto) (50-75) % Lymph % (Auto) (25-40) % [place] % (Auto) (3-14) % Eos % (Auto) (2-4) % Baso % (Auto) (0-2) % Neut # (Auto) (0336-6233) /uL Lymph # (Auto) (0377-3307) /uL [place] # (Auto) (0-900) /uL Eos # (Auto) (0-450) /uL Baso # (Auto) (0-100) /uL Sodium (137-145) mmol/L Potassium (3.4-5.1) mmol/L Chloride (98-107) mmol/L Carbon Dioxide (22-32) mmol/L BUN (9-20) mg/dL Creatinine (0.66-1.25) mg/dL Estimated GFR (>60) mL/min BUN/Creatinine Ratio (6-22) Glucose (80-110) mg/dL Lactate 1.7 (0.7-2.1) mmol/L Uric Acid (3.5-8.5) mg/dL Calcium (8.4-10.2) mg/dL Total Bilirubin (0.2-1.3) mg/dL AST (17-59) IU/L ALT (<50) IU/L Alkaline Phosphatase (38-126) U/L Troponin I (0.01-0.034) ng/mL NT-Pro-B Natriuret Pep (<125) pg/mL Total Protein (6.3-8.2) g/dL Albumin (3.5-5.0) g/dL Globulin (1.7-4.1) g/dL Albumin/Globulin Ratio (1.0-2.8) SARS-CoV-2 (PCR) (Negative) Imaging Data Chest x-ray: Radiologist's Impression: Mild congestion.? No focal infiltrate, pleural effusion or pneumothorax. Discharge Plan Departure Patient Disposition: Home Clinical Impression: Cellulitis of both feet, Congestive heart failure, Gout of both feet, Chronic anemia Instructions: DI for Cellulitis -- Adult, Gout, Anemia, DI for Heart Failure Activity Restrictions/Additional Instructions: Continue your current medications. Take Tylenol or Advil as needed for foot pain. Colchicine 1 tablet daily for foot pain. Stop this medication as soon as your feet are batter. Lasix 40 mg daily. This is a diuretic to get the fluid out of your legs. Septra DS 2 times daily, this is an antibiotic. Follow-up with your doctor as scheduled for recheck. Return here if symptoms are worse.are worse. Prescriptions: New colchicine 0.6 mg tablet 0.6 mg PO DAILY Qty: 10 0RF furosemide [Lasix] 40 mg tablet 40 mg PO DAILY Qty: 30 0RF sulfamethoxazole-trimethoprim 800-160 mg tablet 1 tab PO Q12H 10 Days Qty: 20 0RF No Action hydrocodone-acetaminophen 5-325 mg tablet 1 tab PO BEDTIME metformin 500 mg tablet,ER dory.retention 24 hr 500 mg PO DAILY isosorbide dinitrate 30 mg tablet 30 mg PO ONCE Rx Instructions: allow nitrate-free interval of 12-14 hrs per 24-hr period atorvastatin 40 mg tablet 40 mg PO DAILY amitriptyline 25 mg tablet 25 mg PO BID nitrofurantoin monohyd/m-cryst [Macrobid] 100 mg capsule 100 mg PO Q12H 5 Days Qty: 10 0RF Rx Instructions: must administer with a meal/food aspirin 81 MG tablet,delayed release (DR/EC) 81 mg PO QDAY Qty: 0 testosterone [AndroGel] 1 % gel in packet 1 topical DAILY Qty: 0 CHOLECALCIFEROL (VITAMIN D) 2,000 units PO QDAY Qty: 0 metoprolol succinate 50 mg tablet extended release 24 hr 75 mg PO DAILY loratadine 10 mg tablet 10 mg PO DAILY allopurinol 100 mg tablet 2 tab PO DAILY Label Comments: take 1 tablet by mouth twice a day Trulicity 0.75 mg/0.5 mL pen injector 1 ea SUBCUT Rx Instructions: Dosing unclear from pt records 05/19/22 Referrals: Marisela Abrams MD [Primary Care Provider] -
[2022-05-19 15:31] LABS: Reflexed Lactate in 2 Hours Y
[2022-05-19] MEDS: KETOROLAC 30 MG/ML VIAL 15 MG IV (15:51)
[2022-05-19] MEDS: FUROSEMIDE 40 MG/4 ML VIAL IV (15:51)
[2022-05-19] MEDS: cefTRIAXone 1,000 MG in SODIUM CHLORIDE 0.9% 100 ML 200 MG IV (16:03)
[2022-05-19 16:20] LABS: COVID19 -Nasal RAPID Negative (Negative)
[2022-05-19 16:33] LABS: Uric Acid 3.1 mg/dL (3.5-8.5)
[2022-05-19 16:34] LABS: Lactate 2HR (Lactic Acid Rflx) 1.7 mmol/L (0.7-2.1)
--- NOTE | 2022-05-19 17:38 | PC.NURSE ---
1720: Pt reports improvement in bilateral leg pain and swelling after administration of lasix. Pt reports I'm able to stand now, and before I could hardly walk. Pt also reports improvement with his SOB. Pt reports a hx of R leg revascularization surgery in September and L leg revascularization in January. Pedal pulses obtained by way of Doppler. Pt also reports hx of gout.
[2022-05-19] MEDS: HYDRALAZINE 20 MG/ML VIAL IV (20:04)
[2022-05-19] MEDS: COLCHICINE 0.6 MG TABLET PO (20:04)
== END 2022-05-19 20:33 | disposition home or self-care (01) ==
PROVIDERS: Emergency Provider Emergency Medicine; PCP Internal Medicine
DX: L03.116 Cellulitis of left lower limb (principal); L03.115 Cellulitis of right lower limb; I50.9 Heart failure, unspecified; M10.9 Gout, unspecified; D64.9 Anemia, unspecified; Z20.822 Contact with and (suspected) exposure to COVID-19
CPT/HCPCS: 36415; 71046; 80053; 83605; 83880; 84484; 84550; 85025; 87040; 87635; 93005; 96365; 96375; 99284; C9803; J0360; J0696; J1885; J1940

== ENCOUNTER → 2025-03-21 10:17 | Outpatient (CLI) | payer MEDICARE, OTHER, SELFPAY | PROVIDERS: PCP Internal Medicine; Referring Provider Podiatrist; Visit Provider Surgery | DX: E11.621 Type 2 diabetes mellitus with foot ulcer (principal); L97.522 Non-pressure chronic ulcer of other part of left foot with fat layer exposed; I73.9 Peripheral vascular disease, unspecified; L84 Corns and callosities; R20.8 Other disturbances of skin sensation; E11.40 Type 2 diabetes mellitus with diabetic neuropathy, unspecified | CPT/HCPCS: 11042; 87070; 87075; 87205; 99204; 99213 ==

== ENCOUNTER → 2025-03-21 11:35 | Outpatient (CLI) | payer MEDICARE, OTHER, SELFPAY ==
--- NOTE | 2025-03-21 11:38 | DI.RAD.S_ITS ---
PROCEDURE: XR FOOT LT 2V INDICATIONS: possible osteomyletis, tip of great toe on left TECHNIQUE: 2 views of the foot were acquired. COMPARISON: None. FINDINGS: Bones: No fractures or dislocations. 0.4 cm cystic lucent lesion within the medial aspect of the distal 1st proximal phalanx is likely degenerative. No definite radiographic evidence of osteomyelitis. Retrocalcaneal enthesopathy. Soft tissues: No tibiotalar joint effusion. Achilles tendon appears normal. Atherosclerotic vascular disease. IMPRESSION: No acute bony abnormality or definite radiographic evidence of osteomyelitis. Dictated by: Shawn Lopez M.D. on 03/21/2025 at 23:17 Approved by: Shawn Lopez M.D. on 03/21/2025 at 23:20
== END ==
PROVIDERS: PCP Family Medicine; Referring Provider Surgery; Visit Provider Surgery
DX: E11.621 Type 2 diabetes mellitus with foot ulcer (principal); L97.522 Non-pressure chronic ulcer of other part of left foot with fat layer exposed; E11.40 Type 2 diabetes mellitus with diabetic neuropathy, unspecified; I73.9 Peripheral vascular disease, unspecified; L84 Corns and callosities; R20.8 Other disturbances of skin sensation
CPT/HCPCS: 11042; 73620; 87070; 87075; 87205; 99213

== ENCOUNTER → 2025-03-25 13:58 | Outpatient (CLI) | payer MEDICARE, OTHER, SELFPAY | PROVIDERS: PCP Family Medicine; Referring Provider Family Medicine; Visit Provider Surgery | DX: E11.621 Type 2 diabetes mellitus with foot ulcer (principal); L97.522 Non-pressure chronic ulcer of other part of left foot with fat layer exposed; R20.8 Other disturbances of skin sensation; L84 Corns and callosities | CPT/HCPCS: 99213 ==

== ENCOUNTER → 2025-03-28 09:48 | Outpatient (CLI) | payer MEDICARE, OTHER, SELFPAY | LOC: WC 09:49 | PROVIDERS: PCP Family Medicine; Referring Provider Family Medicine; Visit Provider Surgery | DX: E11.621 Type 2 diabetes mellitus with foot ulcer (principal); L97.522 Non-pressure chronic ulcer of other part of left foot with fat layer exposed; L84 Corns and callosities; I73.9 Peripheral vascular disease, unspecified; G60.9 Hereditary and idiopathic neuropathy, unspecified | CPT/HCPCS: 11042 ==

== ENCOUNTER → 2025-04-01 13:28 | Outpatient (CLI) | payer MEDICARE, OTHER, SELFPAY | LOC: WC 13:29 | PROVIDERS: PCP Family Medicine; Referring Provider Family Medicine; Visit Provider Surgery | DX: E11.621 Type 2 diabetes mellitus with foot ulcer (principal); L97.522 Non-pressure chronic ulcer of other part of left foot with fat layer exposed; L84 Corns and callosities; R23.4 Changes in skin texture | CPT/HCPCS: 99212 ==

== ENCOUNTER → 2025-04-04 10:50 | Outpatient (CLI) | payer MEDICARE, OTHER, SELFPAY | LOC: WC 10:51 | PROVIDERS: PCP Family Medicine; Referring Provider Family Medicine; Visit Provider Surgery | DX: E11.621 Type 2 diabetes mellitus with foot ulcer (principal); L97.522 Non-pressure chronic ulcer of other part of left foot with fat layer exposed; L84 Corns and callosities; R23.4 Changes in skin texture; I73.9 Peripheral vascular disease, unspecified | CPT/HCPCS: 11042 ==

== ENCOUNTER → 2025-04-08 14:47 | Outpatient (CLI) | payer MEDICARE, OTHER, SELFPAY | LOC: WC 15:01 | PROVIDERS: PCP Family Medicine; Referring Provider Family Medicine; Visit Provider Surgery | DX: E11.621 Type 2 diabetes mellitus with foot ulcer (principal); L97.522 Non-pressure chronic ulcer of other part of left foot with fat layer exposed; L84 Corns and callosities; L53.9 Erythematous condition, unspecified | CPT/HCPCS: 99212 ==

== ENCOUNTER → 2025-04-11 10:39 | Outpatient (CLI) | payer MEDICARE, OTHER, SELFPAY ==
--- NOTE | 2025-04-11 10:40 | DI.US.S_ITS ---
PROCEDURE: US ARTERIAL DUPLEX LE LT INDICATIONS: vascular status TECHNIQUE: Color and pulse Doppler interrogation was performed of the left lower extremity arterial system, with image documentation. COMPARISON: [facility], , ARTERIAL LOW.EXTREM.BILATERAL, 11/01/2017, 11:02. FINDINGS: Common femoral artery: 86 cm/sec, with biphasic flow. Deep femoral artery: 68 cm/sec, with biphasic flow. Proximal superficial femoral artery: 64 cm/sec, with biphasic flow. Mid superficial femoral artery: 107 cm/sec, with biphasic flow. Distal superficial femoral artery: 69 cm/sec, with biphasic flow. Popliteal artery: 64 cm/sec, with biphasic flow. Posterior tibial artery: 49 cm/sec, with biphasic flow. Anterior tibial artery/dorsalis pedis: 140 cm/sec, with biphasic flow. Abdul-scale imaging description: Noog-bi-jjajvedy atherosclerotic plaque throughout the visualized vessels. IMPRESSION: 1. Increased velocity in the dorsalis pedis artery may indicate small vessel disease. 2. Focal mildly increased velocity at the mid superficial femoral artery, compatible with mild stenosis. Approved by: Napoleon Stevenson M.D. on 04/11/2025 at 12:17
== END ==
PROVIDERS: PCP Family Medicine; Referring Provider Surgery; Visit Provider Surgery
DX: E11.621 Type 2 diabetes mellitus with foot ulcer (principal); I70.202 Unspecified atherosclerosis of native arteries of extremities, left leg
CPT/HCPCS: 93926

== ENCOUNTER → 2025-04-11 13:34 | Outpatient (CLI) | payer MEDICARE, OTHER, SELFPAY | PROVIDERS: PCP Family Medicine; Referring Provider Family Medicine; Visit Provider Surgery | DX: E11.621 Type 2 diabetes mellitus with foot ulcer (principal); E11.42 Type 2 diabetes mellitus with diabetic polyneuropathy; L97.522 Non-pressure chronic ulcer of other part of left foot with fat layer exposed; I73.9 Peripheral vascular disease, unspecified | CPT/HCPCS: 11042 ==

== ENCOUNTER → 2025-04-15 10:49 | Outpatient (CLI) | payer MEDICARE, OTHER, SELFPAY | PROVIDERS: PCP Family Medicine; Referring Provider Family Medicine; Visit Provider Surgery | DX: E11.621 Type 2 diabetes mellitus with foot ulcer (principal); L97.522 Non-pressure chronic ulcer of other part of left foot with fat layer exposed | CPT/HCPCS: 99212 ==

== ENCOUNTER → 2025-04-18 09:43 | Outpatient (CLI) | payer MEDICARE, OTHER, SELFPAY | PROVIDERS: PCP Family Medicine; Referring Provider Family Medicine; Visit Provider Surgery | DX: E11.621 Type 2 diabetes mellitus with foot ulcer (principal); E11.42 Type 2 diabetes mellitus with diabetic polyneuropathy; L97.522 Non-pressure chronic ulcer of other part of left foot with fat layer exposed; I73.9 Peripheral vascular disease, unspecified | CPT/HCPCS: 15275; 99213; Q4196 ==

== ENCOUNTER → 2025-04-25 09:20 | Outpatient (CLI) | payer MEDICARE, OTHER, SELFPAY | PROVIDERS: PCP Family Medicine; Referring Provider Family Medicine; Visit Provider Surgery | DX: E11.621 Type 2 diabetes mellitus with foot ulcer (principal); E11.42 Type 2 diabetes mellitus with diabetic polyneuropathy; L97.522 Non-pressure chronic ulcer of other part of left foot with fat layer exposed; I73.9 Peripheral vascular disease, unspecified | CPT/HCPCS: 15275; Q4196 ==

== ENCOUNTER → 2025-05-02 09:33 | Outpatient (CLI) | payer MEDICARE, OTHER, SELFPAY | LOC: WC 09:47 | PROVIDERS: PCP Family Medicine; Referring Provider Family Medicine; Visit Provider Surgery | DX: E11.621 Type 2 diabetes mellitus with foot ulcer (principal); E11.42 Type 2 diabetes mellitus with diabetic polyneuropathy; L97.522 Non-pressure chronic ulcer of other part of left foot with fat layer exposed; I73.9 Peripheral vascular disease, unspecified; L84 Corns and callosities | CPT/HCPCS: 15275; Q4196 ==

== ENCOUNTER → 2025-05-09 09:04 | Outpatient (CLI) | payer MEDICARE, OTHER, SELFPAY | LOC: WC 09:05 | PROVIDERS: PCP Family Medicine; Referring Provider Family Medicine; Visit Provider Surgery | DX: E11.621 Type 2 diabetes mellitus with foot ulcer (principal); E11.42 Type 2 diabetes mellitus with diabetic polyneuropathy; L97.522 Non-pressure chronic ulcer of other part of left foot with fat layer exposed; L84 Corns and callosities; I73.9 Peripheral vascular disease, unspecified | CPT/HCPCS: 15275; Q4196 ==

== ENCOUNTER → 2025-05-16 11:20 | Outpatient (CLI) | payer MEDICARE, OTHER, SELFPAY | PROVIDERS: PCP Family Medicine; Referring Provider Family Medicine; Visit Provider Surgery | DX: E11.621 Type 2 diabetes mellitus with foot ulcer (principal); L97.522 Non-pressure chronic ulcer of other part of left foot with fat layer exposed; E11.42 Type 2 diabetes mellitus with diabetic polyneuropathy; I73.9 Peripheral vascular disease, unspecified | CPT/HCPCS: 15275; 99213; Q4159 ==

== ENCOUNTER → 2025-05-23 10:11 | Outpatient (CLI) | payer MEDICARE, OTHER, SELFPAY | PROVIDERS: PCP Family Medicine; Referring Provider Family Medicine; Visit Provider Surgery | DX: E11.621 Type 2 diabetes mellitus with foot ulcer (principal); E11.42 Type 2 diabetes mellitus with diabetic polyneuropathy; L97.522 Non-pressure chronic ulcer of other part of left foot with fat layer exposed; L84 Corns and callosities; I73.9 Peripheral vascular disease, unspecified; L08.9 Local infection of the skin and subcutaneous tissue, unspecified | CPT/HCPCS: 11042; 87070; 87147; 87205; 99213 ==

== ENCOUNTER → 2025-05-27 15:13 | Outpatient (CLI) | payer MEDICARE, OTHER, SELFPAY | LOC: WC 15:17 | PROVIDERS: PCP Family Medicine; Referring Provider Family Medicine; Visit Provider Surgery | DX: E11.621 Type 2 diabetes mellitus with foot ulcer (principal); L97.522 Non-pressure chronic ulcer of other part of left foot with fat layer exposed; L84 Corns and callosities; L53.9 Erythematous condition, unspecified | CPT/HCPCS: 99213 ==

== ENCOUNTER → 2025-05-30 10:23 | Outpatient (CLI) | payer MEDICARE, OTHER, SELFPAY | LOC: WC 10:24 | PROVIDERS: PCP Family Medicine; Referring Provider Family Medicine; Visit Provider Surgery | DX: E11.621 Type 2 diabetes mellitus with foot ulcer (principal); E11.42 Type 2 diabetes mellitus with diabetic polyneuropathy; L97.522 Non-pressure chronic ulcer of other part of left foot with fat layer exposed; L84 Corns and callosities; I73.9 Peripheral vascular disease, unspecified; L98.8 Other specified disorders of the skin and subcutaneous tissue | CPT/HCPCS: 11042 ==

== ENCOUNTER → 2025-06-03 11:22 | Outpatient (CLI) | payer MEDICARE, OTHER, SELFPAY | PROVIDERS: PCP Family Medicine; Referring Provider Family Medicine; Visit Provider Surgery | DX: E11.621 Type 2 diabetes mellitus with foot ulcer (principal); L97.522 Non-pressure chronic ulcer of other part of left foot with fat layer exposed | CPT/HCPCS: 99213 ==

== ENCOUNTER → 2025-06-06 09:36 | Outpatient (CLI) | payer MEDICARE, OTHER, SELFPAY | PROVIDERS: PCP Family Medicine; Referring Provider Family Medicine; Visit Provider Surgery | DX: E11.621 Type 2 diabetes mellitus with foot ulcer (principal); E11.42 Type 2 diabetes mellitus with diabetic polyneuropathy; L97.522 Non-pressure chronic ulcer of other part of left foot with fat layer exposed; I73.9 Peripheral vascular disease, unspecified; S90.425A Blister (nonthermal), left lesser toe(s), initial encounter | CPT/HCPCS: 11042 ==

== ENCOUNTER → 2025-06-10 11:36 | Outpatient (CLI) | payer MEDICARE, OTHER, SELFPAY | LOC: WC 11:54 | PROVIDERS: PCP Family Medicine; Referring Provider Family Medicine; Visit Provider Surgery | DX: E11.621 Type 2 diabetes mellitus with foot ulcer (principal); L97.522 Non-pressure chronic ulcer of other part of left foot with fat layer exposed | CPT/HCPCS: 99212 ==

== ENCOUNTER → 2025-06-13 09:30 | Outpatient (CLI) | payer MEDICARE, OTHER, SELFPAY | LOC: WC 09:31 | PROVIDERS: PCP Family Medicine; Referring Provider Family Medicine; Visit Provider Nurse Practitioner Family | DX: E11.621 Type 2 diabetes mellitus with foot ulcer (principal); E11.42 Type 2 diabetes mellitus with diabetic polyneuropathy; L97.522 Non-pressure chronic ulcer of other part of left foot with fat layer exposed; I73.9 Peripheral vascular disease, unspecified; Z87.891 Personal history of nicotine dependence | CPT/HCPCS: 11042; 99213 ==

== ENCOUNTER → 2025-06-17 09:14 | Outpatient (CLI) | payer MEDICARE, OTHER, SELFPAY | LOC: WC 09:29 | PROVIDERS: PCP Family Medicine; Referring Provider Family Medicine; Visit Provider Surgery | DX: E11.621 Type 2 diabetes mellitus with foot ulcer (principal); E11.42 Type 2 diabetes mellitus with diabetic polyneuropathy; L97.522 Non-pressure chronic ulcer of other part of left foot with fat layer exposed; I73.9 Peripheral vascular disease, unspecified | CPT/HCPCS: 11042 ==

== ENCOUNTER → 2025-06-20 08:47 | Outpatient (CLI) | payer MEDICARE, OTHER, SELFPAY | LOC: WC 08:49 | PROVIDERS: PCP Family Medicine; Referring Provider Family Medicine; Visit Provider Surgery | DX: E11.621 Type 2 diabetes mellitus with foot ulcer (principal); L97.522 Non-pressure chronic ulcer of other part of left foot with fat layer exposed; L84 Corns and callosities | CPT/HCPCS: 99213 ==

== ENCOUNTER → 2025-06-24 09:03 | Outpatient (CLI) | payer MEDICARE, OTHER, SELFPAY | PROVIDERS: PCP Family Medicine; Referring Provider Family Medicine; Visit Provider Surgery | DX: E11.621 Type 2 diabetes mellitus with foot ulcer (principal); L97.526 Non-pressure chronic ulcer of other part of left foot with bone involvement without evidence of necrosis; L97.522 Non-pressure chronic ulcer of other part of left foot with fat layer exposed; E11.51 Type 2 diabetes mellitus with diabetic peripheral angiopathy without gangrene; E11.42 Type 2 diabetes mellitus with diabetic polyneuropathy; I10 Essential (primary) hypertension; L84 Corns and callosities | CPT/HCPCS: 11042; 99213 ==

== ENCOUNTER → 2025-06-25 08:22 | Outpatient (CLI) | payer MEDICARE, OTHER, SELFPAY ==
--- NOTE | 2025-06-25 08:24 | DI.MRI.S_ITS ---
PROCEDURE: MR FOOT LT WO/W CON INDICATIONS: Eval for osteo, left hallux TECHNIQUE: Noncontrast coronal T1 spin echo and STIR, sagittal T1 spin echo with fat saturation and STIR, axial T1 spin echo and T2 fast spin echo with fat saturation. After the administration of contrast, axial/sagittal/coronal T1 spin echo with fat saturation through the left foot. COMPARISON: [facility], CR, XR FOOT LT 2V, 03/21/2025, 11:41. FINDINGS: Image quality: Excellent. Bones: There is marrow edema involving distal portion of 1st proximal phalanx and throughout 1st distal phalanx. Subtle erosive changes are noted involving 1st distal phalangeal tuft. No other area of abnormal marrow signal. No acute fracture or dislocation. No metatarsal stress fractures. Mild midfoot and forefoot joint osteoarthritic changes are seen. After IV contrast infusion, there is enhancement involving 1st distal phalanx. Soft tissues: Significant subcutaneous soft tissue edema and swelling over dorsal aspect of midfoot and forefoot is seen. No discrete drainable peripherally enhancing fluid collection is noted. Edema is also seen involving visualized plantar foot muscles concerning for myositis. No discrete drainable intramuscular fluid collection or enhancing mass is seen. Extensor and flexor tendons are grossly intact. Principal Lisfranc ligament is thickened suggestive of low-grade sprain. IMPRESSION: 1. Finding is suggestive of osteomyelitis involving 1st distal phalanx and possibly distal portion of 1st proximal phalanx. No fracture or dislocation. No suspicious intraosseous lesions. No other area of abnormal intraosseous enhancement. 2. Cellulitis surrounding great toe and extending to dorsal aspect of forefoot and midfoot. No discrete drainable abscess collection. Suggestion of myositis involving visualized plantar foot muscles without discrete intramuscular fluid collection or mass. Extensor and flexor tendons are intact. Suggestion of low-grade sprain involving Lisfranc ligament. Dictated by: Michael Turner M.D. on 06/25/2025 at 11:30 Approved by: Michael Turner M.D. on 06/25/2025 at 15:46
== END ==
LOC: MRI 08:23
PROVIDERS: PCP Family Medicine; Referring Provider Family Medicine; Visit Provider Surgery
DX: E11.621 Type 2 diabetes mellitus with foot ulcer (principal); L97.529 Non-pressure chronic ulcer of other part of left foot with unspecified severity; L03.032 Cellulitis of left toe
CPT/HCPCS: 73720; A9579

== ENCOUNTER → 2025-07-01 09:36 | Outpatient (CLI) | payer MEDICARE, OTHER, SELFPAY ==
[2025-07-01 10:56] LABS: Add Manual Diff / Slide Review NO; Hematocrit 32.1 % (41-53); Hemoglobin 10.9 g/dL (13.5-17.5); Lymphocytes Absolute Auto 1100 /uL (1100-4500); Mean Corpuscular HGB Conc 34.2 % (30-36); Mean Corpuscular Hemoglobin 31.8 PG (26-34); Mean Corpuscular Volume 93.0 fL (80-100); Platelet Count 201 X10^3/uL (150-400)
[2025-07-01 11:02] LABS: Hemoglobin A1C% w Est Avg Glu 7.2 % (4.0-6.0)
[2025-07-01 11:25] LABS: Alanine Aminotransferase 19 IU/L (<50); Albumin 4.2 g/dL (3.5-5.0); Albumin Globulin Ratio 1.9 (1.0-2.8); Alkaline Phosphatase 62 U/L (38-126); Blood Urea Nitrogen 16 mg/dL (9-20); Calcium 9.1 mg/dL (8.4-10.2); Carbon Dioxide 26 mmol/L (22-32); Chloride 102 mmol/L (98-107); Estimated Glomerular Filt Rate > 60 mL/min (>60); Globulin 2.2 g/dL (1.7-4.1); Glucose 136 mg/dL (70-99); HEMOLYSIS < 15 (0-50); Potassium 4.7 mmol/L (3.4-5.1); Sodium 139 mmol/L (137-145); Total Protein 6.4 g/dL (6.3-8.2)
== END ==
PROVIDERS: PCP Family Medicine; Referring Provider Surgery; Visit Provider Surgery
DX: M86.9 Osteomyelitis, unspecified (principal)
CPT/HCPCS: 36415; 80053; 83036; 85025; 85651; 86140; 87070; 87205

== ENCOUNTER → 2025-07-11 08:21 | Outpatient (CLI) | payer MEDICARE, OTHER, SELFPAY | PROVIDERS: PCP Family Medicine; Referring Provider Family Medicine; Visit Provider Surgery | DX: E11.621 Type 2 diabetes mellitus with foot ulcer (principal); L97.512 Non-pressure chronic ulcer of other part of right foot with fat layer exposed; L97.522 Non-pressure chronic ulcer of other part of left foot with fat layer exposed; L84 Corns and callosities | CPT/HCPCS: 99213 ==

== ENCOUNTER → 2025-07-22 09:03 | Outpatient (CLI) | payer MEDICARE, OTHER, SELFPAY | LOC: WC 09:19 | PROVIDERS: PCP Family Medicine; Referring Provider Family Medicine; Visit Provider Surgery | DX: E11.621 Type 2 diabetes mellitus with foot ulcer (principal); L97.522 Non-pressure chronic ulcer of other part of left foot with fat layer exposed; L97.512 Non-pressure chronic ulcer of other part of right foot with fat layer exposed; L84 Corns and callosities; E11.51 Type 2 diabetes mellitus with diabetic peripheral angiopathy without gangrene; E11.40 Type 2 diabetes mellitus with diabetic neuropathy, unspecified; M86.9 Osteomyelitis, unspecified; Z79.2 Long term (current) use of antibiotics; I10 Essential (primary) hypertension; I25.10 Atherosclerotic heart disease of native coronary artery without angina pectoris; Z87.891 Personal history of nicotine dependence | CPT/HCPCS: 11042 ==

== ENCOUNTER → 2025-07-25 10:17 | Outpatient (CLI) | payer MEDICARE, OTHER, SELFPAY | PROVIDERS: PCP Family Medicine; Referring Provider Family Medicine; Visit Provider Surgery | DX: E11.621 Type 2 diabetes mellitus with foot ulcer (principal); L97.512 Non-pressure chronic ulcer of other part of right foot with fat layer exposed; L97.522 Non-pressure chronic ulcer of other part of left foot with fat layer exposed; L84 Corns and callosities | CPT/HCPCS: 99213 ==

== ENCOUNTER → 2025-07-30 14:29 | Outpatient (CLI) | payer MEDICARE, OTHER, SELFPAY | PROVIDERS: PCP Family Medicine; Referring Provider Family Medicine; Visit Provider Surgery | DX: E11.621 Type 2 diabetes mellitus with foot ulcer (principal); L97.512 Non-pressure chronic ulcer of other part of right foot with fat layer exposed; L84 Corns and callosities; E11.40 Type 2 diabetes mellitus with diabetic neuropathy, unspecified; E11.51 Type 2 diabetes mellitus with diabetic peripheral angiopathy without gangrene; M86.9 Osteomyelitis, unspecified | CPT/HCPCS: 11042 ==

== ENCOUNTER → 2025-08-02 10:23 | Outpatient (CLI) | payer MEDICARE, OTHER, SELFPAY | LOC: WC 10:24 | PROVIDERS: PCP Family Medicine; Referring Provider Family Medicine; Visit Provider Physician Assistant | DX: E11.621 Type 2 diabetes mellitus with foot ulcer (principal); L97.512 Non-pressure chronic ulcer of other part of right foot with fat layer exposed; L84 Corns and callosities | CPT/HCPCS: 99213 ==

== ENCOUNTER → 2025-08-05 09:33 | Outpatient (CLI) | payer MEDICARE, OTHER, SELFPAY | LOC: WC 09:34 | PROVIDERS: PCP Family Medicine; Referring Provider Family Medicine; Visit Provider Surgery | DX: E11.621 Type 2 diabetes mellitus with foot ulcer (principal); L97.512 Non-pressure chronic ulcer of other part of right foot with fat layer exposed; L84 Corns and callosities; E11.51 Type 2 diabetes mellitus with diabetic peripheral angiopathy without gangrene; E11.40 Type 2 diabetes mellitus with diabetic neuropathy, unspecified; M86.9 Osteomyelitis, unspecified; Z87.891 Personal history of nicotine dependence | CPT/HCPCS: 11042 ==

== ENCOUNTER → 2025-08-08 08:34 | Outpatient (CLI) | payer MEDICARE, OTHER, SELFPAY | LOC: WC 08:35 | PROVIDERS: PCP Family Medicine; Referring Provider Family Medicine; Visit Provider Surgery | DX: E11.621 Type 2 diabetes mellitus with foot ulcer (principal); L97.512 Non-pressure chronic ulcer of other part of right foot with fat layer exposed; L84 Corns and callosities | CPT/HCPCS: 99212 ==

== ENCOUNTER → 2025-08-12 08:43 | Outpatient (CLI) | payer MEDICARE, OTHER, SELFPAY | LOC: WC 08:45 | PROVIDERS: PCP Family Medicine; Referring Provider Family Medicine; Visit Provider Surgery | DX: E11.621 Type 2 diabetes mellitus with foot ulcer (principal); L97.512 Non-pressure chronic ulcer of other part of right foot with fat layer exposed; E11.51 Type 2 diabetes mellitus with diabetic peripheral angiopathy without gangrene; E11.40 Type 2 diabetes mellitus with diabetic neuropathy, unspecified; R60.0 Localized edema; M86.172 Other acute osteomyelitis, left ankle and foot | CPT/HCPCS: 11042 ==

== ENCOUNTER → 2025-08-15 09:59 | Outpatient (CLI) | payer MEDICARE, OTHER, SELFPAY | LOC: WC 10:04 | PROVIDERS: PCP Family Medicine; Referring Provider Family Medicine; Visit Provider Surgery | DX: E11.621 Type 2 diabetes mellitus with foot ulcer (principal); L97.512 Non-pressure chronic ulcer of other part of right foot with fat layer exposed; R60.0 Localized edema | CPT/HCPCS: 99212 ==

== ENCOUNTER → 2025-08-19 08:44 | Outpatient (CLI) | payer MEDICARE, OTHER, SELFPAY | LOC: WC 08:45 | PROVIDERS: PCP Family Medicine; Referring Provider Family Medicine; Visit Provider Surgery | DX: E11.621 Type 2 diabetes mellitus with foot ulcer (principal); L97.512 Non-pressure chronic ulcer of other part of right foot with fat layer exposed; E11.42 Type 2 diabetes mellitus with diabetic polyneuropathy; E11.51 Type 2 diabetes mellitus with diabetic peripheral angiopathy without gangrene; M86.9 Osteomyelitis, unspecified; Z87.891 Personal history of nicotine dependence; I25.10 Atherosclerotic heart disease of native coronary artery without angina pectoris; I10 Essential (primary) hypertension; M79.674 Pain in right toe(s) | CPT/HCPCS: 11042; 99213 ==

== ENCOUNTER → 2025-08-22 08:46 | Outpatient (CLI) | payer MEDICARE, OTHER, SELFPAY | LOC: WC 08:56 | PROVIDERS: PCP Family Medicine; Referring Provider Family Medicine; Visit Provider Surgery | DX: E11.621 Type 2 diabetes mellitus with foot ulcer (principal); L97.512 Non-pressure chronic ulcer of other part of right foot with fat layer exposed; L53.8 Other specified erythematous conditions; R60.0 Localized edema | CPT/HCPCS: 99213 ==

== ENCOUNTER → 2025-08-26 11:05 | Outpatient (CLI) | payer MEDICARE, OTHER, SELFPAY | LOC: WC 11:06 | PROVIDERS: PCP Family Medicine; Referring Provider Family Medicine; Visit Provider Surgery | DX: E11.621 Type 2 diabetes mellitus with foot ulcer (principal); L97.512 Non-pressure chronic ulcer of other part of right foot with fat layer exposed; M86.172 Other acute osteomyelitis, left ankle and foot; L08.9 Local infection of the skin and subcutaneous tissue, unspecified; E11.42 Type 2 diabetes mellitus with diabetic polyneuropathy; I73.9 Peripheral vascular disease, unspecified; L53.8 Other specified erythematous conditions; R21 Rash and other nonspecific skin eruption; R60.0 Localized edema | CPT/HCPCS: 15275; Q4199 ==

== ENCOUNTER → 2025-08-29 14:56 | Outpatient (CLI) | payer MEDICARE, OTHER, SELFPAY ==
[2025-08-29 15:48] LABS: Add Manual Diff / Slide Review NO; Estimated Glomerular Filt Rate > 60 mL/min (>60); Hematocrit 36.2 % (41-53); Hemoglobin 12.4 g/dL (13.5-17.5); Lymphocytes Absolute Auto 1500 /uL (1100-4500); Mean Corpuscular HGB Conc 34.2 % (30-36); Mean Corpuscular Hemoglobin 30.7 PG (26-34); Mean Corpuscular Volume 89.8 fL (80-100); Platelet Count 226 X10^3/uL (150-400)
== END ==
PROVIDERS: PCP Family Medicine; Referring Provider Internal Medicine Infectious Disease; Visit Provider Internal Medicine Infectious Disease
DX: D64.9 Anemia, unspecified (principal)
CPT/HCPCS: 36415; 82565; 85025

== ENCOUNTER → 2025-09-02 16:21 | Outpatient (CLI) | payer MEDICARE, OTHER, SELFPAY | LOC: WC 16:22 | PROVIDERS: PCP Family Medicine; Referring Provider Family Medicine; Visit Provider Surgery | DX: E11.621 Type 2 diabetes mellitus with foot ulcer (principal); L97.512 Non-pressure chronic ulcer of other part of right foot with fat layer exposed; E11.42 Type 2 diabetes mellitus with diabetic polyneuropathy; I73.9 Peripheral vascular disease, unspecified; R60.0 Localized edema; L53.8 Other specified erythematous conditions | CPT/HCPCS: 15275; Q4199 ==

== ENCOUNTER → 2025-09-09 09:22 | Outpatient (CLI) | payer MEDICARE, OTHER, SELFPAY | LOC: WC 09:25 | PROVIDERS: PCP Family Medicine; Referring Provider Family Medicine; Visit Provider Surgery | DX: E11.621 Type 2 diabetes mellitus with foot ulcer (principal); L97.512 Non-pressure chronic ulcer of other part of right foot with fat layer exposed | CPT/HCPCS: 15275; Q4199 ==

== ENCOUNTER → 2025-09-16 09:12 | Outpatient (CLI) | payer MEDICARE, OTHER, SELFPAY | LOC: WC 09:22 | PROVIDERS: PCP Family Medicine; Referring Provider Family Medicine; Visit Provider Surgery | DX: E11.621 Type 2 diabetes mellitus with foot ulcer (principal); L97.512 Non-pressure chronic ulcer of other part of right foot with fat layer exposed | CPT/HCPCS: 15275; 99213; Q4199 ==

== ENCOUNTER → 2025-09-23 08:44 | Outpatient (CLI) | payer MEDICARE, OTHER, SELFPAY | LOC: WC 08:46 | PROVIDERS: PCP Family Medicine; Referring Provider Family Medicine; Visit Provider Surgery | DX: E11.621 Type 2 diabetes mellitus with foot ulcer (principal); L97.512 Non-pressure chronic ulcer of other part of right foot with fat layer exposed; L53.9 Erythematous condition, unspecified; R60.0 Localized edema | CPT/HCPCS: 99212 ==

== ENCOUNTER → 2025-09-30 13:57 | Outpatient (CLI) | payer MEDICARE, OTHER, SELFPAY | LOC: WC 13:58 | PROVIDERS: PCP Family Medicine; Referring Provider Family Medicine; Visit Provider Surgery | DX: E11.621 Type 2 diabetes mellitus with foot ulcer (principal); L97.512 Non-pressure chronic ulcer of other part of right foot with fat layer exposed; M86.172 Other acute osteomyelitis, left ankle and foot; L08.9 Local infection of the skin and subcutaneous tissue, unspecified; E11.42 Type 2 diabetes mellitus with diabetic polyneuropathy; I73.9 Peripheral vascular disease, unspecified; R21 Rash and other nonspecific skin eruption; R60.0 Localized edema; R23.4 Changes in skin texture | CPT/HCPCS: 11042 ==

== ENCOUNTER → 2025-10-07 15:42 | Outpatient (CLI) | payer MEDICARE, OTHER, SELFPAY | LOC: WC 15:43 | PROVIDERS: PCP Family Medicine; Referring Provider Family Medicine; Visit Provider Surgery | DX: E11.621 Type 2 diabetes mellitus with foot ulcer (principal); L97.512 Non-pressure chronic ulcer of other part of right foot with fat layer exposed; I73.9 Peripheral vascular disease, unspecified; E11.42 Type 2 diabetes mellitus with diabetic polyneuropathy; L08.9 Local infection of the skin and subcutaneous tissue, unspecified; R21 Rash and other nonspecific skin eruption; R60.0 Localized edema | CPT/HCPCS: 11042 ==

== ENCOUNTER → 2025-10-14 09:24 | Outpatient (CLI) | payer MEDICARE, OTHER, SELFPAY | LOC: WC 09:31 | PROVIDERS: PCP Family Medicine; Referring Provider Family Medicine; Visit Provider Surgery | DX: E11.621 Type 2 diabetes mellitus with foot ulcer (principal); L97.512 Non-pressure chronic ulcer of other part of right foot with fat layer exposed; E11.42 Type 2 diabetes mellitus with diabetic polyneuropathy; I73.9 Peripheral vascular disease, unspecified; R60.0 Localized edema | CPT/HCPCS: 11042; 99213 ==

== ENCOUNTER → 2025-10-21 08:21 | Outpatient (CLI) | payer MEDICARE, OTHER, SELFPAY | LOC: WC 08:24 | PROVIDERS: PCP Family Medicine; Referring Provider Family Medicine; Visit Provider Surgery | DX: E11.621 Type 2 diabetes mellitus with foot ulcer (principal); L97.512 Non-pressure chronic ulcer of other part of right foot with fat layer exposed; E11.42 Type 2 diabetes mellitus with diabetic polyneuropathy; I73.9 Peripheral vascular disease, unspecified; M86.172 Other acute osteomyelitis, left ankle and foot; L08.9 Local infection of the skin and subcutaneous tissue, unspecified; R21 Rash and other nonspecific skin eruption; R60.0 Localized edema | CPT/HCPCS: 11042 ==

== ENCOUNTER → 2025-10-28 09:00 | Outpatient (CLI) | payer MEDICARE, OTHER, SELFPAY | PROVIDERS: PCP Family Medicine; Referring Provider Family Medicine; Visit Provider Surgery | DX: E11.621 Type 2 diabetes mellitus with foot ulcer (principal); L97.512 Non-pressure chronic ulcer of other part of right foot with fat layer exposed; E11.42 Type 2 diabetes mellitus with diabetic polyneuropathy; I73.9 Peripheral vascular disease, unspecified; M86.172 Other acute osteomyelitis, left ankle and foot; R21 Rash and other nonspecific skin eruption; R60.0 Localized edema | CPT/HCPCS: 11042 ==

== ENCOUNTER → 2025-10-28 09:13 | Outpatient (CLI) | payer MEDICARE, OTHER, SELFPAY ==
--- NOTE | 2025-10-28 09:17 | DI.RAD.S_ITS ---
PROCEDURE: XR FOOT RT MIN 3V INDICATIONS: DFU R great toe, distal. Eval for osteo TECHNIQUE: 3 views of the foot were acquired. COMPARISON: [facility], CR, XR FOOT LT 2V, 03/21/2025, 11:41. FINDINGS: On oblique view the tuft of the 1st distal phalanx is ill-defined and there is overlying skin ulceration and swelling. No soft tissue gas or radiopaque foreign body. Atherosclerotic calcifications. Degenerative Achilles enthesopathy. Mild degenerative change of the 1st MTP. IMPRESSION: Suspect 1st distal phalanx osteomyelitis. Dictated by: Abhijit Issa M.D. on 10/28/2025 at 9:48 Approved by: Abhijit Issa M.D. on 10/28/2025 at 9:50
== END ==
LOC: RAD 09:15
PROVIDERS: PCP Family Medicine; Referring Provider Family Medicine; Visit Provider Surgery
DX: E11.621 Type 2 diabetes mellitus with foot ulcer (principal); L97.519 Non-pressure chronic ulcer of other part of right foot with unspecified severity
CPT/HCPCS: 73630

== ENCOUNTER → 2025-11-01 14:53 | Outpatient (CLI) | payer MEDICARE, OTHER, SELFPAY ==
--- NOTE | 2025-11-01 14:54 | DI.US.S_ITS ---
PROCEDURE: US ARTERIAL DUPLEX LE RT INDICATIONS: non-healing DFU of R great toe. Abnormal SAULO. TECHNIQUE: Color and pulse Doppler interrogation was performed of the right lower extremity arterial system, with image documentation. COMPARISON: [facility], MR, MR FOOT RT WO/W CON, 11/04/2025, 16:22. [facility], US, US ARTERIAL DUPLEX LE LT, 04/11/2025, 11:03. FINDINGS: Common femoral artery: 108 cm/sec, with basic flow. Deep femoral artery: 160 cm/sec, with biphasic flow. Proximal superficial femoral artery: 152 cm/sec, with biphasic flow. Mid superficial femoral artery: 87 cm/sec, with biphasic flow. Distal superficial femoral artery: 56 cm/sec, with biphasic flow. Popliteal artery: 100 cm/sec, with biphasic flow. Posterior tibial artery: No visualized flow. Anterior tibial artery/dorsalis pedis: 100 cm/sec, with biphasic/monophasic. flow. Abdul-scale imaging description: Scattered calcified plaque. IMPRESSION: No visualized flow within the posterior tibial artery. As indicated, CTA runoff may be obtained for further evaluation. Dictated by: Samara Wilhelm M.D. on 11/04/2025 at 19:33 Approved by: Samara Wilhelm M.D. on 11/04/2025 at 19:35
== END ==
LOC: US 14:53
PROVIDERS: PCP Family Medicine; Referring Provider Family Medicine; Visit Provider Surgery
DX: E11.621 Type 2 diabetes mellitus with foot ulcer (principal); L97.519 Non-pressure chronic ulcer of other part of right foot with unspecified severity
CPT/HCPCS: 93926

== ENCOUNTER → 2025-11-04 08:23 | Outpatient (CLI) | payer MEDICARE, OTHER, SELFPAY | LOC: WC 08:26 | PROVIDERS: PCP Family Medicine; Referring Provider Family Medicine; Visit Provider Surgery | DX: E11.621 Type 2 diabetes mellitus with foot ulcer (principal); L97.512 Non-pressure chronic ulcer of other part of right foot with fat layer exposed; E11.40 Type 2 diabetes mellitus with diabetic neuropathy, unspecified; E11.51 Type 2 diabetes mellitus with diabetic peripheral angiopathy without gangrene; I10 Essential (primary) hypertension; Z87.891 Personal history of nicotine dependence | CPT/HCPCS: 11042; 87070; 87075; 87147; 87205 ==

== ENCOUNTER → 2025-11-04 15:45 | Outpatient (CLI) | payer MEDICARE, OTHER, SELFPAY ==
--- NOTE | 2025-11-04 15:47 | DI.MRI.S_ITS ---
PROCEDURE: MR FOOT RT WO/W CON INDICATIONS: evaluate for osteo right hallux TECHNIQUE: Noncontrast coronal T1 spin echo and STIR, sagittal T1 spin echo with fat saturation and STIR, axial T1 spin echo and T2 fast spin echo with fat saturation. After the administration of contrast, axial/sagittal/coronal T1 spin echo with fat saturation through the right foot.. COMPARISON: [facility], CR, XR FOOT RT MIN 3V, 10/28/2025, 9:14. [facility], MR, MR FOOT LT WO/W CON, 06/25/2025, 8:45. FINDINGS: Image quality: Excellent. Bones: [id number] midfoot and forefoot joint osteoarthritic changes are seen with joint space narrowing, subchondral sclerosis and subcortical cystic changes more notably involving 1st MTP joint. There is marrow edema involving 1st distal phalangeal tuft with subtle erosive changes. Mild contrast enhancement at the area of edema is also seen. No other area of abnormal marrow signal or bony erosive changes. No acute fracture or dislocation. No metatarsal stress fractures. Soft tissues: Soft tissue swelling and ulceration involving tip of great toe is seen . No discrete drainable abscess collection. There is T2 hyperintense signal in visualized plantar foot muscles suggestive of myositis. No discrete intramuscular fluid collection or area of abnormal enhancement is seen. Extensor and flexor tendons are intact. Lisfranc ligament is intact. IMPRESSION: 1. Ulceration and cellulitis involving distal portion of great toe. No discrete drainable abscess collection. 2. Suggestion of osteomyelitis involving tuft and distal shaft of 1st distal phalanx. 3. Midfoot and forefoot joint osteoarthritis. No fracture or dislocation. No other area of abnormal intraosseous enhancement. 4. Mild myositis involving visualized plantar foot muscles without intramuscular mass or fluid collection. Dictated by: Michael Turner M.D. on 11/05/2025 at 11:00 Approved by: Michael Turner M.D. on 11/05/2025 at 11:25
== END ==
PROVIDERS: PCP Family Medicine; Referring Provider Surgery; Visit Provider Surgery
DX: E11.621 Type 2 diabetes mellitus with foot ulcer (principal); L97.529 Non-pressure chronic ulcer of other part of left foot with unspecified severity; L03.031 Cellulitis of right toe; M79.89 Other specified soft tissue disorders
CPT/HCPCS: 73720; 87070; 87075; 87205; A9579

== ENCOUNTER → 2025-11-11 09:10 | Outpatient (CLI) | payer MEDICARE, OTHER, SELFPAY | LOC: WC 09:11 | PROVIDERS: PCP Family Medicine; Referring Provider Family Medicine; Visit Provider Surgery | DX: E11.621 Type 2 diabetes mellitus with foot ulcer (principal); L97.512 Non-pressure chronic ulcer of other part of right foot with fat layer exposed; E11.42 Type 2 diabetes mellitus with diabetic polyneuropathy; I73.9 Peripheral vascular disease, unspecified; M86.171 Other acute osteomyelitis, right ankle and foot; L53.8 Other specified erythematous conditions; R23.4 Changes in skin texture; R60.0 Localized edema | CPT/HCPCS: 11042; 87070; 87075; 87147; 87205; 99213 ==

== ENCOUNTER → 2025-11-11 09:20 | Outpatient (CLI) | payer MEDICARE, OTHER, SELFPAY ==
[2025-11-11 10:11] LABS: Add Manual Diff / Slide Review NO; Hematocrit 34.6 % (41-53); Hemoglobin 12.0 g/dL (13.5-17.5); Lymphocytes Absolute Auto 1300 /uL (1100-4500); Mean Corpuscular HGB Conc 34.7 % (30-36); Mean Corpuscular Hemoglobin 31.3 PG (26-34); Mean Corpuscular Volume 90.2 fL (80-100); Platelet Count 199 X10^3/uL (150-400)
[2025-11-11 10:14] LABS: Hemoglobin A1C% w Est Avg Glu 7.0 % (4.0-6.0)
[2025-11-11 10:25] LABS: Alanine Aminotransferase 23 IU/L (<50); Albumin 4.4 g/dL (3.5-5.0); Albumin Globulin Ratio 1.8 (1.0-2.8); Alkaline Phosphatase 67 U/L (38-126); Blood Urea Nitrogen 18 mg/dL (9-20); Calcium 9.1 mg/dL (8.4-10.2); Carbon Dioxide 23 mmol/L (22-32); Chloride 101 mmol/L (98-107); Estimated Glomerular Filt Rate > 60 mL/min (>60); Globulin 2.4 g/dL (1.7-4.1); Glucose 188 mg/dL (70-99); HEMOLYSIS < 15 (0-50); Potassium 4.6 mmol/L (3.4-5.1); Sodium 138 mmol/L (137-145); Total Protein 6.8 g/dL (6.3-8.2)
== END ==
PROVIDERS: PCP Family Medicine; Referring Provider Family Medicine; Visit Provider Surgery
DX: E11.621 Type 2 diabetes mellitus with foot ulcer (principal); L97.509 Non-pressure chronic ulcer of other part of unspecified foot with unspecified severity
CPT/HCPCS: 36415; 80053; 83036; 85025; 85651; 86140

== ENCOUNTER → 2025-11-18 08:48 | Outpatient (CLI) | payer MEDICARE, OTHER, SELFPAY | LOC: WC 08:51 | PROVIDERS: PCP Family Medicine; Referring Provider Podiatrist; Visit Provider Surgery | DX: E11.621 Type 2 diabetes mellitus with foot ulcer (principal); L97.512 Non-pressure chronic ulcer of other part of right foot with fat layer exposed; I73.9 Peripheral vascular disease, unspecified; E11.42 Type 2 diabetes mellitus with diabetic polyneuropathy; R60.0 Localized edema; L53.8 Other specified erythematous conditions | CPT/HCPCS: 11042; 87070; 87147; 87205 ==

== ENCOUNTER → 2025-11-25 09:03 | Outpatient (CLI) | payer MEDICARE, OTHER, SELFPAY | LOC: WC 09:14 | PROVIDERS: PCP Family Medicine; Referring Provider Family Medicine; Visit Provider Surgery | DX: E11.621 Type 2 diabetes mellitus with foot ulcer (principal); L97.512 Non-pressure chronic ulcer of other part of right foot with fat layer exposed; E11.42 Type 2 diabetes mellitus with diabetic polyneuropathy; I73.9 Peripheral vascular disease, unspecified; M86.171 Other acute osteomyelitis, right ankle and foot; L53.8 Other specified erythematous conditions | CPT/HCPCS: 11042 ==